=== PATIENT | female | born 1980 | race Caucasian/White ===

== ENCOUNTER 2017-12-13 14:16 | Emergency (ER) | payer MEDICAID, SELFPAY ==
[2017-12-13 14:16] VITALS: BP 151/90; PULSE 78; RESP 16; TEMP 36.9; O2SAT 100; BMI 35.9
--- NOTE | 2017-12-13 14:41 | ED.VISSUMM ---
- ER Visit Summary Date of Service: 12/13/17 Chief Complaint: Rash History of Present Illness: The patient is a 37 F with a rash to her bilateral ankles. The patient is normally sedentary. She has been walking in the heat and developed this rash afterwards. No fever or systemic symptoms. Physical Examination: Vitals unremarkable. Nontoxic. Alert and oriented. Exam unremarkable except for a rash. She has nonblanching erythema to her bilateral ankles that starts about the level of where she was wearing socks. Skin is intact. No warmth, fluctuance, or edema noted. 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 This is self-limiting. Treat with anti-inflammatories. There are no other symptoms to suggest a symptomatic process other concerning features. Nothing to suggest cellulitis. Patient will follow up with primary care. Treatment Plan: Motrin, rest, acclimatized to heat Disposition: Discharged Impression: 1. Rash bilateral ankles This note was generated with [employer] dictation software. It may contain incorrect words, spelling, and punctuation that were not noted in review of the chart prior to signing ED Disposition - Plan for ED Patient: Chief Complaint: Rash Referrals: Care Physician,No Primary [Primary Care Provider] -
--- NOTE | 2017-12-13 14:43 | ED.DEP ---
ED Disposition - Plan for ED Patient: Chief Complaint: Rash Instructions: Self-Care for Skin Rashes Referrals: Benton Garcia MD [NON-STAFF] -
[2017-12-13] MEDS: Ibuprofen 600 MG Tablet PO (14:47)
== END 2017-12-13 14:49 | disposition home or self-care (01) ==
PROVIDERS: Emergency Provider Emergency Medicine
DX: R21 Rash and other nonspecific skin eruption (principal); Z72.0 Tobacco use
CPT/HCPCS: 99284

== ENCOUNTER → 2018-07-24 17:46 | Outpatient (CLI) | payer MEDICAID, SELFPAY ==
[2018-07-24 14:15] VITALS: BMI 35.9
[2018-07-24 17:48] LABS: Bacteria 0 SEEN /hpf (None Seen); Mucous, Urine 0 SEEN /hpf (<or=2+); White Blood Cells 0 SEEN /hpf (0-5)
[2018-07-24 19:45] LABS: Color, Urine Yellow (Yellow); Glucose, Dipstick Normal (Normal); Ketone-Dipstick Negative (Negative); Leukocyte Esterase-Dipstick Negative /ul (Negative); Nitrite-Dipstick Negative (Negative); Occult Blood-Urine 50 /ul (Negative); Protein-Dipstick Negative (Negative); Specific Gravity, Urine 1.015 (1.002-1.030); Urine Bilirubin Dipstick Negative (Negative); Urine Clarity Clear (Clear); Urine Urobilinogen Normal (Normal)
[2018-07-24 20:04] LABS: Red Blood Cells-Urine 0-5 SEEN /hpf (0-5); Squamous Epithelial Cells - UA 0-5 SEEN /hpf (5-10)
== END ==
PROVIDERS: PCP Internal Medicine; Referring Provider Nurse Practitioner Family; Visit Provider Nurse Practitioner Family
DX: R30.0 Dysuria (principal)
CPT/HCPCS: 81001; 87086; 87088

== ENCOUNTER → 2018-08-13 07:44 | Outpatient (CLI) | payer MEDICAID, SELFPAY ==
[2018-08-11 10:50] VITALS: BMI 35.9
[2018-08-13 09:11] LABS: Absolute Lymphocyte Count 2.28 X10^3/ul (0.83-4.51); Absolute Neutrophil Count 5.5 X10^3/uL (2.0-7.7); Basophil# 0.01 X10^3/uL; Basophil% 0.1 % (0-1); Eosinophil# 0.14 X10^3/uL; Eosinophils% 1.7 % (0-5); Hematocrit 36.7 % (37-47); Hemoglobin 11.4 g/dl (12.0-15.0); Lymphocyte # 2.28 X10^3/ul (4.0); Lymphocyte % 27.2 % (19-41); Mean Corp Hgb Conc 31.1 g/gl (32-36); Mean Corpuscular Hgb 26.5 pg (27.0-32.0); Mean Corpuscular Volume 85.3 fL (81-99); Monocyte# 0.48 X10^3/uL; Monocyte% 5.7 % (0-10); Neutrophil # 5.45 X10^3/uL (2.7-7.7); Neutrophil % 65.2 % (47-70); Platelet Count 196 K/mm3 (150-450); RBC Distribution Width CV 16.5 % (11.6-14.6); RBC Distribution Width SD 51.6 fl (35.1-43.9); White Blood Count 8.4 K/mm3 (4.4-11.0)
[2018-08-13 09:13] LABS: POSITIVE COUNT NO; POSITIVE DIFFERENTIAL NO; POSITIVE MORPHOLOGY NO
[2018-08-13 09:52] LABS: ALB/GLOB Ratio 0.7 RATIO (0.9-2.4); AST(SGOT) 41 U/L (15-37); Alanine Aminotransfer ALT/SGPT 63 U/L (13-56); Albumin, Serum 3.2 g/dL (3.2-5.0); Alkaline Phosphatase 70 U/L (45-117); Anion Gap 9 (5-15); BUN 19 mg/dL (7-18); BUN/Creat Ratio 21.6 RATIO (10-20); Calcium,Total 6.5 mg/dL (8.5-10.1); Chloride 106 mmol/L (98-107); Creatinine, Serum 0.88 mg/dL (0.55-1.02); EST Glomerular Filtration Rate 77 mL/min (>60); Est Glom Filt Rate - Afr Amer 93 mL/min (>60); Globulin 4.7 g/dL (2.2-4.2); Glucose 95 mg/dL (74-106); Potassium 3.6 mmol/L (3.5-5.1); Protein, Total 7.9 g/dL (6.4-8.2); Sodium Level 140 mmol/L (136-145); Thyroid Stim Hormone (TSH) 3.84 uIU/mL (0.358-3.74)
[2018-08-13 09:57] LABS: T3 Total - Triiodothyronine 0.87 ng/mL (0.6-1.81)
== END ==
PROVIDERS: Family Provider Internal Medicine; PCP Internal Medicine; Referring Provider Nurse Practitioner Family; Visit Provider Nurse Practitioner Family
DX: B19.20 Unspecified viral hepatitis C without hepatic coma (principal); E03.9 Hypothyroidism, unspecified; F19.10 Other psychoactive substance abuse, uncomplicated
CPT/HCPCS: 36415; 80053; 84439; 84443; 84480; 85025

== ENCOUNTER → 2018-08-26 08:16 | Outpatient (CLI) | payer MEDICAID, SELFPAY ==
[2018-08-11 10:50] VITALS: BMI 35.9
[2018-08-26 10:10] LABS: Anion Gap 7 (5-15); BUN 16 mg/dL (7-18); BUN/Creat Ratio 19.3 RATIO (10-20); Calcium,Total 7.4 mg/dL (8.5-10.1); Chloride 104 mmol/L (98-107); Creatinine, Serum 0.83 mg/dL (0.55-1.02); EST Glomerular Filtration Rate 83 mL/min (>60); Est Glom Filt Rate - Afr Amer 100 mL/min (>60); Glucose 75 mg/dL (74-106); Potassium 3.8 mmol/L (3.5-5.1); Sodium Level 139 mmol/L (136-145)
== END ==
PROVIDERS: Family Provider Internal Medicine; PCP Internal Medicine; Referring Provider Nurse Practitioner Family; Visit Provider Nurse Practitioner Family
DX: E83.51 Hypocalcemia (principal)
CPT/HCPCS: 36415; 80048

== ENCOUNTER → 2018-09-24 08:01 | Outpatient (CLI) | payer MEDICAID, SELFPAY ==
[2018-09-16 13:42] VITALS: BMI 35.9
[2018-09-24 13:26] LABS: Anion Gap 9 (5-15); BUN 13 mg/dL (7-18); BUN/Creat Ratio 16.1 RATIO (10-20); Calcium,Total 5.6 mg/dL (8.5-10.1); Chloride 102 mmol/L (98-107); Creatinine, Serum 0.81 mg/dL (0.55-1.02); EST Glomerular Filtration Rate 85 mL/min (>60); Est Glom Filt Rate - Afr Amer 103 mL/min (>60); Glucose 102 mg/dL (74-106); Potassium 3.8 mmol/L (3.5-5.1); Sodium Level 139 mmol/L (136-145); T4 Free Direct 1.83 ng/dL (0.76-1.46); Thyroid Stim Hormone (TSH) 0.04 uIU/mL (0.358-3.74)
== END ==
PROVIDERS: Family Provider Internal Medicine; PCP Internal Medicine; Visit Provider Nurse Practitioner Family
DX: E03.9 Hypothyroidism, unspecified (principal); E83.51 Hypocalcemia
CPT/HCPCS: 36415; 80048; 84439; 84443

== ENCOUNTER 2018-09-24 15:34 | Emergency (ER) | payer MEDICAID, SELFPAY ==
[2018-09-16 13:42] VITALS: BMI 35.9
[2018-09-24 15:34] VITALS: BP 114/72; PULSE 102; RESP 16; TEMP 36.8; O2SAT 97; BMI 42.1
--- NOTE | 2018-09-24 16:03 | ED.VISSUMM ---
- ER Visit Summary Date of Service: 09/24/18 Chief Complaint: Sent in for low calcium History of Present Illness: The patient is a 37 F history of thyroid cancer prior thyroidectomy and parathyroidectomy with a history of chronic hypocalcemia. She has a history also of hepatitis C, anemia and prior drug abuse. Patient had labs done at her primary care physician's office which showed low calcium of 5.6 and she was sent in the ER. Says she is felt fatigued recently but she has been battling a URI. She denies nausea, vomiting or diarrhea. Says she has some intermittent muscle cramping or fasciculations. She takes 1200 mg of calcium daily along with vitamin D. Physical Examination: Well-appearing young female. Vital signs are stable afebrile. No distress. HEENT exam unremarkable. Neck nontender. Lungs clear to auscultation bilaterally. Heart regular rate and rhythm no murmur. Abdomen soft nontender. Normal bowel sounds no peritoneal signs. Extremities moves all 4. Neurovascular intact. Normal motor strength. Neurologically awake and alert with no focal motor deficits. Test Results: BMP is unremarkable except for her calcium of 5.2. Normal creatinine and gap. Normal potassium. Emergency Department Course and Treatment: Treated with IV calcium chloride. Repeat exam patient is doing well at 1820. Feels fine and comfortable being discharged home. Treatment Plan: Continue her current medications. Return to ER feeling worse she knows the symptoms to return for. Follow-up with your doctor on Friday to have her calcium level rechecked. Follow-up with a market relationship manager long-term. Disposition: discharge Impression: Acute on chronic hypocalcemia History of thyroidectomy and parathyroidectomy due to thyroid cancer This note was generated with [employer] dictation software. It may contain incorrect words, spelling, and punctuation that were not noted in review of the chart prior to signing ED Disposition - Plan for ED Patient: Referrals: Maykel Larose MD [Primary Care Provider] -
--- NOTE | 2018-09-24 16:09 | ED.DCSUM_ITS ---
- ER Visit Summary Date of Service: 09/24/18 Chief Complaint: Sent in for low calcium History of Present Illness: The patient is a 37 F history of thyroid cancer prior thyroidectomy and parathyroidectomy with a history of chronic hypocalcemia. She has a history also of hepatitis C, anemia and prior drug ab use. Patient had labs done at her primary care physician's office which showed low calcium of 5.6 and she was sent in the ER. Says she is felt fatigued recently but she has been battling a URI. She denies nausea, vomiting or diarrhea. Says she has some intermittent muscle cramping or fasciculations. She takes 1200 mg of calcium daily along with vitamin D. Physical Examination: Well-appearing young female. Vital signs are stable afebrile. No distress. HEENT exam unremarkable. Neck nontender. Lungs clear to auscultation bilaterally. Heart regular rate and rhythm no murmur. Abdomen soft nontender. Normal bowel sounds no peritoneal signs. Extremities moves all 4. Neurovascular intact. Normal motor strength. Neurologically awake and alert with no focal motor deficits. Test Results: BMP is unremarkable except for her calcium of 5.2. Normal creatinine and gap. Normal potassium. Emergency Department Course and Treatment: Treated with IV calcium chloride. Repeat exam patient is doing well at 1820. Feels fine and comfortable being discharged home. Treatment Plan: Continue her current medications. Return to ER feeling worse she knows the symptoms to return for. Follow-up with your doctor on Friday to have her calcium level rechecked. Follow-up with a facility manager histology long-term. Disposition: discharge Impression: Acute on chronic hypocalcemia History of thyroidectomy and parathyroidectomy due to thyroid cancer This note was generated with [employer] dictation software. It may contain incorrect words, spelling, and punctuation that were not noted in review of the chart prior to signing ED Disposition - Plan for ED Patient: Referrals: Maykel Larose MD [Primary Care Provider] -
[2018-09-24 17:10] LABS: Anion Gap 8 (5-15); BUN 13 mg/dL (7-18); BUN/Creat Ratio 17.2 RATIO (10-20); Calcium,Total 5.2 mg/dL (8.5-10.1); Chloride 104 mmol/L (98-107); Creatinine, Serum 0.76 mg/dL (0.55-1.02); EST Glomerular Filtration Rate 92 mL/min (>60); Est Glom Filt Rate - Afr Amer 111 mL/min (>60); Estimated Creatinine Clearance 114.38 ml/min; Glucose 100 mg/dL (74-106); Potassium 3.5 mmol/L (3.5-5.1); Sodium Level 138 mmol/L (136-145)
[2018-09-24 17:11] VITALS: BP 114/71; PULSE 85; RESP 23; O2SAT 99
--- NOTE | 2018-09-24 17:12 | ED.RN ---
DR. YOST AWARE OF CRITICAL CALCIUM
[2018-09-24 18:21] VITALS: BP 93/67; PULSE 82; RESP 18
--- NOTE | 2018-09-24 18:22 | DCINST.ED_ITS ---
ED Disposition - Plan for ED Patient: Disposition: Home or Assisted Living Instructions: ED Hypocalcemia Referrals: Maykel Larose MD [Primary Care Provider] - 3-5 Days Additional Instructions: Follow-up with your doctors office on Friday and need to have your calcium level rechecked. Continue your current medications specifically your calcium. Return to ER if you are feeling worse. Long-term you to follow-up with diesel engine specialist for your hypoparathyroidism
== END 2018-09-24 18:25 | disposition home or self-care (01) ==
PROVIDERS: Emergency Provider Emergency Medicine; Family Provider Internal Medicine; PCP Internal Medicine
DX: E83.51 Hypocalcemia (principal); D64.9 Anemia, unspecified; Z72.0 Tobacco use; Z79.899 Other long term (current) drug therapy; Z86.19 Personal history of other infectious and parasitic diseases; Z85.850 Personal history of malignant neoplasm of thyroid; E03.9 Hypothyroidism, unspecified
CPT/HCPCS: 36415; 80048; 84439; 84443; 96365; 96366; 99282; J7030; A4216

== ENCOUNTER → 2018-10-07 15:34 | Outpatient (CLI) | payer MEDICAID, SELFPAY ==
[2018-09-25 14:42] VITALS: BMI 43.2
--- NOTE | 2018-10-07 15:36 | RAD_ITS ---
STUDY: X-RAY - RIGHT KNEE REASON FOR EXAM: Pain. TECHNIQUE: 5 view(s) of the knee. COMPARISON: None. FINDINGS: Normal visualized distal femur. Normal visualized proximal tibia and fibula. Normal proximal tibiofibular articulation. Normal medial femorotibial compartment. There is a small marginal osteophyte and mild joint space narrowing of the lateral femorotibial compartment. Normal patellofemoral articulation. The soft tissue structures are unremarkable. 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 Electronically Signed: Robbie Boswell MD at 15:38 EDT Tel , Service support ,
== END ==
PROVIDERS: Family Provider Internal Medicine; PCP Internal Medicine; Referring Provider Orthopaedic Surgery; Visit Provider Orthopaedic Surgery
DX: M25.561 Pain in right knee (principal)
CPT/HCPCS: 73564

== ENCOUNTER → 2018-10-12 13:06 | Outpatient (CLI) | payer MEDICAID, SELFPAY ==
[2018-09-25 14:42] VITALS: BMI 43.2
[2018-10-12 14:25] LABS: PTHIN 3.9 pg/mL (18.4-80.1)
[2018-10-12 14:30] LABS: Anion Gap 5 (5-15); BUN 18 mg/dL (7-18); BUN/Creat Ratio 22.1 RATIO (10-20); Calcium,Total 5.6 mg/dL (8.5-10.1); Chloride 103 mmol/L (98-107); Creatinine, Serum 0.81 mg/dL (0.55-1.02); EST Glomerular Filtration Rate 84 mL/min (>60); Est Glom Filt Rate - Afr Amer 102 mL/min (>60); Glucose 96 mg/dL (74-106); Sodium Level 136 mmol/L (136-145); Thyroid Stim Hormone (TSH) 0.01 uIU/mL (0.358-3.74)
== END ==
PROVIDERS: Family Provider Internal Medicine; PCP Internal Medicine; Referring Provider Internal Medicine; Visit Provider Internal Medicine
DX: E83.51 Hypocalcemia (principal); E03.9 Hypothyroidism, unspecified
CPT/HCPCS: 36415; 80048; 83970; 84439; 84443

== ENCOUNTER 2018-10-13 10:06 | Observation (INO) | payer MEDICAID, SELFPAY ==
[2018-09-25 14:42] VITALS: BMI 43.2
[2018-10-13 10:07] VITALS: BP 133/85; PULSE 88; RESP 18; TEMP 36.7; O2SAT 97; BMI 43.2
--- NOTE | 2018-10-13 10:20 | EKG12_ITS ---
Test Reason : [facility] LABS Blood Pressure : / mmHG Vent. Rate : 080 BPM Atrial Rate : 080 BPM P-R Int : 132 ms QRS Dur : 088 ms QT Int : 410 ms P-R-T Axes : 028 019 034 degrees QTc Int : 472 ms Normal sinus rhythm Normal ECG Confirmed by ROLDAN GOMEZ, FEROZ ([id number]), manager editorial CAPRICE AMBROSE ([id number]) on 10/15/2018 9:13:13 AM Referred By: Servando Culver Confirmed By:FEROZ MONTILLA MD
--- NOTE | 2018-10-13 10:23 | NURSING ---
NO OLD EKGS
[2018-10-13 11:01] LABS: Absolute Lymphocyte Count 1.73 X10^3/ul (0.83-4.51); Absolute Neutrophil Count 5.2 X10^3/uL (2.0-7.7); Basophil# 0.01 X10^3/uL; Basophil% 0.1 % (0-1); Eosinophil# 0.15 X10^3/uL; Hematocrit 37.4 % (37-47); Lymphocyte # 1.73 X10^3/ul (4.0); Lymphocyte % 22.8 % (19-41); Mean Corp Hgb Conc 32.1 g/gl (32-36); Mean Corpuscular Volume 81.1 fL (81-99); Mean Platelet Vol. 10.1 fl (6.2-12.0); Monocyte# 0.48 X10^3/uL; Monocyte% 6.3 % (0-10); Neutrophil # 5.21 X10^3/uL (2.7-7.7); Neutrophil % 68.7 % (47-70); Platelet Count 226 K/mm3 (150-450); RBC Distribution Width SD 43.9 fl (35.1-43.9); Red Blood Count 4.61 M/mm3 (4.2-5.4); White Blood Count 7.6 K/mm3 (4.4-11.0)
[2018-10-13 11:04] LABS: POSITIVE COUNT NO; POSITIVE DIFFERENTIAL NO; POSITIVE MORPHOLOGY NO
[2018-10-13 11:13] LABS: Anion Gap 5 (5-15); BUN 13 mg/dL (7-18); BUN/Creat Ratio 16.4 RATIO (10-20); Calcium,Total 5.6 mg/dL (8.5-10.1); Chloride 105 mmol/L (98-107); EST Glomerular Filtration Rate 87 mL/min (>60); Est Glom Filt Rate - Afr Amer 105 mL/min (>60); Estimated Creatinine Clearance 108.66 ml/min; Glucose 98 mg/dL (74-106); Potassium 3.9 mmol/L (3.5-5.1); Sodium Level 137 mmol/L (136-145)
--- NOTE | 2018-10-13 11:14 | ED.RN ---
CA OF 5.[address] MCGILL
[2018-10-13] MEDS: Calcium Chloride 1 GM/10 ML Syringe IV (11:19)
--- NOTE | 2018-10-13 11:19 | ED.VISSUMM ---
- ER Visit Summary Date of Service: 10/13/18 Chief Complaint: [Hypocalcemia] History of Present Illness: The patient is a 37 F [presents the emergency department stating that for last 3-4 months she has been having problems with no calcium. Patient takes calcium carbonate 600 mg twice a day. She had blood work done yesterday that showed a low calcium and was advised to come to the emergency department today. Patient complains of eyelid twitching and slow thinking and also at times feels like her hands lock up. Patient has history of thyroidectomy and parathyroid resections and states that she only has 1 parathyroid working. Patient had been seeing an dive superintendent after her surgery but then her internal medicine doctor took over treatment. Patient was referred recently to an dive superintendent but has not seen him yet.] Physical Examination: [HEENT-PERRLA, EOMI. Cranial nerves II through XII grossly intact. TMs clear. Mucous membranes moist. No adenopathy. Cardiovascular-regular rate and rhythm without murmur or ectopy Lungs-clear to auscultation, chest wall stable without crepitus or subcu emphysema Abdomen-normoactive bowel sounds, soft, nontender, no rebound or rigidity, no peritoneal signs. Extremities-intact ?4, normal range of motion, normal pulses, atraumatic] Test Results: [CBC with differential obtained was unremarkable. Chemistries unremarkable. Calcium was 5.6. EKG obtained showed sinus rhythm with a ventricular rate of 80 bpm with no acute I segment changes.] Emergency Department Course and Treatment: [Patient was given calcium chloride 1 amp IV.] Treatment Plan: [Discussed with hospitalist will admit patient] Disposition: [Admit] Impression: [Symptomatic hypocalcemia] This note was generated with [employer] dictation software. It may contain incorrect words, spelling, and punctuation that were not noted in review of the chart prior to signing ED Disposition - Plan for ED Patient: Referrals: Maykel Larose MD [Primary Care Provider] -
--- NOTE | 2018-10-13 11:23 | ED.DCSUM_ITS ---
- ER Visit Summary Date of Service: 10/13/18 Chief Complaint: [Hypocalcemia] History of Present Illness: The patient is a 37 F [presents the emergency department stating that for last 3-4 months she has been having problems with no calcium. Patient takes calcium carbonate 600 mg twice a day. She had blood work done yesterday that showed a low calcium and was advised to come to the emergency department today. Patient complains of eyelid twitching and slow thinking and also at times feels like her hands lock up. Patient has history of thyroidectomy and parathyroid resections and states that she only has 1 parathyroid working. Patient had been seeing an doors prefitter after her surgery but then her internal medicine doctor took over treatment. Patient was referred recently to an doors prefitter but has not seen him yet.] Physical Examination: [HEENT-PERRLA, EOMI. Cranial nerves II through XII grossly intact. TMs clear. Mucous membranes moist. No adenopathy. Cardiovascular-regular rate and rhythm without murmur or ectopy Lungs-clear to auscultation, chest wall stable without crepitus or subcu emphysema Abdomen-normoactive bowel sounds, soft, nontender, no rebound or rigidity, no peritoneal signs. Extremities-intact ?4, normal range of motion, normal pulses, atraumatic] Test Results: [CBC with differential obtained was unremarkable. Chemistries unremarkable. Calcium was 5.6. EKG obtained showed sinus rhythm with a ventricular rate of 80 bpm with no acute I segment changes.] Emergency Department Course and Treatment: [Patient was given calcium chloride 1 amp IV.] Treatment Plan: [Discussed with hospitalist will admit patient] Disposition: [Admit] Impression: [Symptomatic hypocalcemia] This note was generated with [employer] dictation software. It may contain incorrect words, spelling, and punctuation that were not noted in review of the chart prior to signing ED Disposition - Plan for ED Patient: Referrals: Maykel Larose MD [Primary Care Provider] -
--- NOTE | 2018-10-13 11:33 | NURSING ---
DR GARCIA FOR DR MCGILL
--- NOTE | 2018-10-13 11:35 | NURSING ---
MED SURG OBS TERELETKSY HYPOCALCEMIA
--- NOTE | 2018-10-13 11:47 | CASEMGMT ---
RN CM Assessment Introduced role of RN CM to patient.? Patient is alert, oriented and able?to participate in RN CM Assessment. ?Care providers, pharmacy, and demographics verified. Presentation: Has been having issues with low Calcioum the past 3-4 months, had blood work done yesterday that showed low Calcium and told to come to the ER Admit Dx: Hypoglycemia Re-Admit: No Barriers/Issues: None PCP: Maykel Larose Specialists: Radha- Dr Johnie Reno [facility]: [facility] Insurance: [facility] Rx Benefit:?Yes ?LNOK: [facility] LW/HPOA: No, Refused Offered info. Living Arrangements:? Lives at the [facility] ADL?s: Independent with ambulation and ADL's Transportation: Transit or [facility], D/C- [facility] DME: None HHC: None SNF: None Goal: Back to the [facility] DC PLAN: Home with no anticipated needs identified at this time. Mulugeta Eduardo RNCM
[2018-10-13 12:23] VITALS: BP 99/76; PULSE 65; RESP 17; O2SAT 99
[2018-10-13 12:52] VITALS: BMI 43.3
[2018-10-13 13:05] VITALS: BP 104/67; PULSE 65; RESP 16; TEMP 36.6; O2SAT 100; BMI 43.4
[2018-10-13] MEDS: Calcium Carbonate 500 MG Tablet 1000 MG PO ×3 (13:47→22:29)
[2018-10-13] MEDS: Calcitriol 0.25 MCG Capsule 1 MCG PO ×2 (13:48→22:28)
--- NOTE | 2018-10-13 14:05 | CASEMGMT ---
Addendum entered by Radha Echevarria 10/13/18 17:04: SW reviewed documentation completed by student mental health social worker and agree with note on this day. Original Note: Social Work MS3 Spoke with pt to confirm treatment for recent diagnosis of depression. Pt confirmed to be in residential treatment and works with counselors daily and has prescription of Wellbutrin for medication treatment. No other services requested or indicated at this time. -Barbara Goins, HOME LIGHTING ADVISER Student Stamping Bench Die Maker.
--- NOTE | 2018-10-13 15:20 | PCM.HP.STD ---
Problem List (1) Chronic sinusitis Status: Chronic (2) Hypoparathyroidism Status: Chronic (3) Morbid obesity with BMI of 40.0-44.9, adult Status: Chronic (4) Calcium deficiency Status: Chronic (5) Hypothyroidism Status: Chronic (6) Chronic pain of right knee Status: Chronic (7) Vitamin deficiency Status: Chronic (8) Neuropathy Status: Chronic (9) Low calcium levels Status: Chronic (10) Hepatitis C Status: Chronic (11) Drug abuse Status: Resolved (12) Anemia Status: Chronic History of Present Illness Date of Admission: 10/13/18 Chief Complaint: Low calcium. The patient is a 37 year old F who presents emergency room due to low calcium. Patient reports she had lab drawn yesterday by her primary care provider and was referred to the emergency room due to low calcium. She reports she has had intermittent low calcium levels for the past 7 years due to hypoparathyroidism status post thyroidectomy. She currently reports eye twitching and bilateral hand cramping. Denies other complaints. Denies palpitations, chest pain. She denies history of arrhythmias. She reports she has been referred to endocrinology as an outpatient but has not yet followed up. She has a past medical history of hypothyroidism/hypoparathyroidism status post thyroidectomy, hepatitis C, morbid obesity, history of drug use in remission for the past 2 years. Past Medical History Past Medical History (Chronic Problems): Chronic Problems (Last Reviewed 09/25/18 @ 14:42 by Mery Tinsley) Chronic sinusitis (Chronic) Hypoparathyroidism (Chronic) Morbid obesity with BMI of 40.0-44.9, adult (Chronic) Calcium deficiency (Chronic) Hypothyroidism (Chronic) Chronic pain of right knee (Chronic) Vitamin deficiency (Chronic) Neuropathy (Chronic) Low calcium levels (Chronic) Hepatitis C (Chronic) Anemia (Chronic) Medical History: Medical History (Last Reviewed 09/25/18 @ 14:42 by Mery Tinsley) Vitamin deficiency (Chronic) E56.9 Neuropathy (Chronic) G62.9 Low calcium levels (Chronic) E83.51 Hepatitis C (Chronic) B19.20 Drug abuse (Acute) F19.10 Anemia (Chronic) D64.9 Thyroid cancer C73 Allergies amoxicillin Allergy (Intermediate, Verified 10/13/18 12:56) Hives naproxen Allergy (Verified 10/13/18 10:08) Swelling Home Medications: Ambulatory Orders Medication Instructions Recorded albuterol sulfate HFA 90 1 - 2 puff INHALATION Q6H PRN #8 g 08/11/18 mcg/actuation aerosol inhaler Bupropion HCl [Bupropion Xl] 150 mg PO DAILY 09/24/18 Ferrous Sulfate 325 mg PO DAILY 09/24/18 Fluticasone 0.05% [Flonase Nasal 1 spray NASAL DAILY 09/24/18 [place]] Gabapentin [Neurontin] 300 mg PO QHS 09/24/18 Omeprazole 40 mg PO DAILY 09/24/18 Potassium Chloride [K-Tab ER] 20 meq PO DAILY 09/24/18 calcitriol 0.5 mcg capsule 0.5 mcg PO DAILY #30 cap 10/12/18 calcium carbonate 600 mg calcium 600 mg PO BID #60 tab 10/12/18 (1,500 mg) tablet Levothyroxine Sodium 200 mcg PO DAILY 10/13/18 Surgical History: Surgical History (Last Reviewed 10/13/18 @ 15:23 by GUEVARA Chin) HISTORY PARTIAL PARATHYROIDECTOMY 2010 History of Z98.891 2004, 2010 History of thyroidectomy Z98.890 History of tubal ligation Z98.51 2011 Surgical History: - - x2, tubal ligation, thyroidectomy. 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 Review of Systems Constitutional: Denies: Chills, Fever, Weight Change Eyes: Reports: - - Eye twitching. Denies: Vision Change HEENT: Denies: Head Aches, Sinus Congestion, Sinus Drainage Cardiovascular: Denies: Chest Pain, Palpitations Respiratory: Denies: Cough, Shortness of breath at rest, Sputum production Gastrointestinal: Denies: Abdominal Pain, Nausea, Vomiting Genitourinary: Denies: Dysuria Musculoskeletal: Reports: - - Bilateral hand cramping. Denies: Joint Pain, Joint Tenderness Skin: Denies: Rash, Wounds Neurological: Denies: Focal weakness, Numbness, Tingling Psychiatric: Denies: Anxiety, Depression, Homicidal Ideations, Suicidal Ideations Hematologic/ Lymphatic: Denies: Easy Bruising, Easy Bleeding VTE Information - Inpt Only VTE Present on Admission: No VTE Mechan Device Prophylaxis: None VTE Pharm Prophylaxis ordered?: Yes - Physical Exam General: Alert, Oriented x3, Cooperative HEENT: Atraumatic, PERRLA, EOMI, Normocephalic Neck: Supple, No JVD, Negative Carotid Bruits Lungs: Clear to auscultation, Normal air movement Cardiovascular: Regular rate, Regular Rhythm, Normal S1, Normal S2, No murmurs Abdomen: Bowel Sounds Present, Soft, Non Tender, Non-Distended, Obese Extremities: No clubbing, No cyanosis, No edema, Capillary Refill Less than 3 Seconds Skin: No rashes, No breakdown Musculoskeletal: No Tenderness to Palpation of Joints or Extremities Neurological: Cranial nerves II-XII grossly intact, Neuro grossly intact Psych/Mental Status: Normal Affect, Appropriate Vital Signs Temp Pulse Resp BP Pulse Ox 97.9 F 65 16 104/67 100 10/13/18 13:05 10/13/18 13:05 10/13/18 13:05 10/13/18 13:05 10/13/18 13:05 Oxygen Delivery Method Room Air Weight: 310 lb 14.687 oz Body Mass Index (BMI) 43.3 Laboratory Tests Past 24 Hrs 10/13/18 10/13/18 10/13/18 10:44 10:44 10:44 WBC 7.6 RBC 4.61 Hgb 12.0 Hct 37.4 MCV 81.1 MCH 26.0 L MCHC 32.1 RDW 15.0 H RDW Differential 43.9 Plt Count 226 MPV 10.1 Immature Gran % (Auto) 0.100 Neut % (Auto) 68.7 Lymph % (Auto) 22.8 [place] % (Auto) 6.3 Eos % (Auto) 2.0 Baso % (Auto) 0.1 Absolute Neuts (auto) 5.2 Absolute Lymphs (auto) 1.73 Total Counted Not Reportable Sodium 137 Potassium 3.9 Chloride 105 Carbon Dioxide 27.0 Anion Gap 5 BUN 13 Creatinine 0.80 Estim Creat Clear Calc 108.66 Est GFR (MDRD) Af Amer 105 Est GFR (MDRD) Non-Af 87 BUN/Creatinine Ratio 16.4 Glucose 98 Calcium 5.6 L* Ionized Calcium Pending Assessment/Plan All Active Problems (Last Reviewed 09/25/18 @ 14:42 by Mery Tinsley) Drug abuse (Resolved) 1. Acute on chronic severe hypocalcemia in the context of hypoparathyroidism/Hypothyroidism status post thyroidectomy-calcium gluconate X1. Calcium carbonate 1000 mg 4 times daily. Trend calcium. Monitor telemetry. Follow-up with endocrinology as outpatient. 2. Hepatitis C- outpatient follow up. 3. 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 Lives in sober living house. 4. Morbid obesity-encouraged diet lifestyle modifications. 5. Depression/anxiety-continue home bupropion regimen. 6. GERD-continue PPI. DVT prophylaxis-not indicated, low risk. This patient was seen by GUEVARA Chin under the supervision of Dr. Culver.
[2018-10-13 15:25] VITALS: PULSE 64
[2018-10-13 19:59] VITALS: PULSE 71
[2018-10-13 20:28] VITALS: BP 100/77; PULSE 79; RESP 18; TEMP 36.6; O2SAT 97
[2018-10-13] MEDS: Gabapentin 300 MG Capsule PO (22:28)
[2018-10-14] VITALS (7 sets, daily range): BP systolic 99–115; BP diastolic 52–67; PULSE 62–86; RESP 16–18; TEMP 36.4–37; O2SAT 96–97
[2018-10-14] MEDS: Levothyroxine 100 MCG Tablet 200 MCG PO (06:28)
[2018-10-14 06:29] LABS: Calcium,Total 7.2 mg/dL (8.5-10.1)
[2018-10-14] MEDS: Ferrous Sulfate 325 MG Tablet PO (08:28)
[2018-10-14] MEDS: Calcium Carbonate 500 MG Tablet 1000 MG PO (08:28)
[2018-10-14] MEDS: 0.9% NaCl Peripheral Flush Adult/Peds IV (09:03)
--- NOTE | 2018-10-14 10:52 | PCM.DC ---
You will use the following diet at home:: No restrictions Discharge Activity: Return to Normal Activity Call your doctor if you observe: Numbness or Tingling, Increased palpitations (irregular heartbeat) Additional Instructions: You will need to have calcium level repeated within 1 week. Allergies/Adverse Reactions: Allergies amoxicillin Allergy (Intermediate, Verified 10/13/18 12:56) Hives naproxen Allergy (Verified 10/13/18 10:08) Swelling Medications to take at Discharge albuterol sulfate HFA 90 mcg/actuation aerosol inhaler 1 - 2 puff INHALATION Q6H PRN #8 g 08/11/18 Bupropion HCl [Bupropion Xl] 150 mg PO DAILY 09/24/18 Ferrous Sulfate 325 mg PO DAILY 09/24/18 Fluticasone 0.05% [Flonase Nasal [place]] 1 spray NASAL DAILY 09/24/18 Gabapentin [Neurontin] 300 mg PO QHS 09/24/18 Omeprazole 40 mg PO DAILY 09/24/18 Potassium Chloride [K-Tab ER] 20 meq PO DAILY 09/24/18 Levothyroxine Sodium 200 mcg PO DAILY 10/13/18 Calcitriol [Rocaltrol] 1 mcg PO BID #120 capsule 10/14/18 Calcium Carbonate [Tums] 1,000 mg PO 4X/DAYCM #120 tablet 10/14/18 The following prescriptions were given: Calcitriol [Rocaltrol] 1 mcg PO BID #120 capsule Calcium Carbonate [Tums] 1,000 mg PO 4X/DAYCM #120 tablet Primary Care Physician: Maykel Larose MD [Primary Care Provider] - Please follow up with your Primary Care Physician in: 3-5 Days Test Results: Test results from this visit will be discussed in further detail at your follow-up appointment, if applicable. Please Follow Up With: Krys Drummond MD - Endocrinology When: Within 1 Week, call for appt Proposed Discharge Date: 10/14/18
--- NOTE | 2018-10-14 10:58 | DCINST_ITS ---
You will use the following diet at home:: No restrictions Discharge Activity: Return to Normal Activity Call your doctor if you observe: Numbness or Tingling, Increased palpitations (irregular heartbeat) Additional Instructions: You will need to have calcium level repeated within 1 week. Allergies/Adverse Reactions: Allergies amoxicillin Allergy (Intermediate, Verified 10/13/18 12:56) Hives naproxen Allergy (Verified 10/13/18 10:08) Swelling Medications to take at Discharge albuterol sulfate HFA 90 mcg/actuation aerosol inhaler 1 - 2 puff INHALATION Q6H PRN #8 g 08/11/18 Bupropion HCl [Bupropion Xl] 150 mg PO DAILY 09/24/18 Ferrous Sulfate 325 mg PO DAILY 09/24/18 Fluticasone 0.05% [Flonase Nasal [place]] 1 spray NASAL DAILY 09/24/18 Gabapentin [Neurontin] 300 mg PO QHS 09/24/18 Omeprazole 40 mg PO DAILY 09/24/18 Potassium Chloride [K-Tab ER] 20 meq PO DAILY 09/24/18 Levothyroxine Sodium 200 mcg PO DAILY 10/13/18 Calcitriol [Rocaltrol] 1 mcg PO BID #120 capsule 10/14/18 Calcium Carbonate [Tums] 1,000 mg PO 4X/DAYCM #120 tablet 10/14/18 The following prescriptions were given: Calcitriol [Rocaltrol] 1 mcg PO BID #120 capsule Calcium Carbonate [Tums] 1,000 mg PO 4X/DAYCM #120 tablet Primary Care Physician: Maykel Larose MD [Primary Care Provider] - Please follow up with your Primary Care Physician in: 3-5 Days Test Results: Test results from this visit will be discussed in further detail at your follow- up appointment, if applicable. Please Follow Up With: Krys Drummond MD - Endocrinology When: Within 1 Week, call for appt Proposed Discharge Date: 10/14/18
--- NOTE | 2018-10-14 10:59 | PCM.DC.SUM ---
Discharge Date and Diagnosis Date of Admission: 10/13/18 Date of Discharge: 10/14/18 - Primary Discharge Diagnosis 1. Acute on chronic severe hypocalcemia in the context of hypoparathyroidism/Hypothyroidism status post thyroidectomy 2. Hepatitis C 3. 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 Morbid obesity 5. Depression/anxiety 6. GERD - Secondary Discharge Diagnosis Chronic Problems (Last Reviewed 09/25/18 @ 14:42 by Mery Tinsley) Chronic sinusitis (Chronic) Hypoparathyroidism (Chronic) Morbid obesity with BMI of 40.0-44.9, adult (Chronic) Calcium deficiency (Chronic) Hypothyroidism (Chronic) Chronic pain of right knee (Chronic) Vitamin deficiency (Chronic) Neuropathy (Chronic) Low calcium levels (Chronic) Hepatitis C (Chronic) Anemia (Chronic) Hospital Course and Treatment Operations: None Procedures: None Summary of Care Provided: The patient is a 37 year old F admitted 10/13/2018 due to low calcium. 1. Acute on chronic severe hypocalcemia in the context of hypoparathyroidism/Hypothyroidism status post thyroidectomy-calcium gluconate X2 during admission. Increase home calcium carbonate to 1000 mg 4 times daily. Home calcitriol regimen increased to 1 mcg twice daily. Calcium level improved to 7.2 from 5.6 on admission. She will need repeat calcium level drawn within 1 week. Follow-up with primary care physician and endocrinology in 1 week. 2. Hepatitis C- outpatient follow up. 3. 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 Lives in sober living house. 4. Morbid obesity-encouraged diet and lifestyle modifications. 5. Depression/anxiety-continue home bupropion regimen. 6. GERD-continue PPI. General: Alert, Oriented x3, Cooperative HEENT: Atraumatic, PERRLA, EOMI, Normocephalic Neck: Supple, No JVD, Negative Carotid Bruits Lungs: Clear to auscultation, Normal air movement Cardiovascular: Regular rate, Regular Rhythm, Normal S1, Normal S2, No murmurs Abdomen: Bowel Sounds Present, Soft, Non Tender, Non-Distended, Obese Extremities: No clubbing, No cyanosis, No edema, Capillary Refill Less than 3 Seconds Skin: No rashes, No breakdown Musculoskeletal: No Tenderness to Palpation of Joints or Extremities Neurological: Cranial nerves II-XII grossly intact, Neuro grossly intact Psych/Mental Status: Normal Affect, Appropriate Patient seen and examined prior to discharge. Physical assessment as noted above. Patient is stable for discharge with follow up recommendations as noted above. This patient was seen by GUEVARA Chin under the supervision of Dr. Culver. - Physical Exam Vital Signs Temp Pulse Resp BP Pulse Ox 98.6 F 67 16 99/52 L 97 10/14/18 08:26 10/14/18 10:00 10/14/18 08:26 10/14/18 08:26 10/14/18 08:26 Oxygen Delivery Method Room Air Weight: 310 lb 14.687 oz Body Mass Index (BMI) 43.3 Intake and Output for Last 24 Hours 10/12/18 10/13/18 10/14/18 23:59 23:59 23:59 Intake Total 500 / 500 Balance 500 / 500 Laboratory Tests Past 24 Hrs 10/13/18 10/13/18 10/14/18 10:44 10:44 05:15 WBC 7.6 RBC 4.61 Hgb 12.0 Hct 37.4 MCV 81.1 MCH 26.0 L MCHC 32.1 RDW 15.0 H RDW Differential 43.9 Plt Count 226 MPV 10.1 Immature Gran % (Auto) 0.100 Neut % (Auto) 68.7 Lymph % (Auto) 22.8 Real % (Auto) 6.3 Eos % (Auto) 2.0 Baso % (Auto) 0.1 Absolute Neuts (auto) 5.2 Absolute Lymphs (auto) 1.73 Total Counted Not Reportable Sodium 137 Potassium 3.9 Chloride 105 Carbon Dioxide 27.0 Anion Gap 5 BUN 13 Creatinine 0.80 Estim Creat Clear Calc 108.66 Est GFR (MDRD) Af Amer 105 Est GFR (MDRD) Non-Af 87 BUN/Creatinine Ratio 16.4 Glucose 98 Calcium 5.6 L* 7.2 L Discharge Diet: No Restrictions Discharge Activity: Return to Normal Activity Call your doctor if you observe: Numbness or Tingling, Increased palpitations (irregular heartbeat) Home Medications: Medications to take at Discharge albuterol sulfate HFA 90 mcg/actuation aerosol inhaler 1 - 2 puff INHALATION Q6H PRN #8 g 08/11/18 Bupropion HCl [Bupropion Xl] 150 mg PO DAILY 09/24/18 Ferrous Sulfate 325 mg PO DAILY 09/24/18 Fluticasone 0.05% [Flonase Nasal [place]] 1 spray NASAL DAILY 09/24/18 Gabapentin [Neurontin] 300 mg PO QHS 09/24/18 Omeprazole 40 mg PO DAILY 09/24/18 Potassium Chloride [K-Tab ER] 20 meq PO DAILY 09/24/18 Levothyroxine Sodium 200 mcg PO DAILY 10/13/18 Calcitriol [Rocaltrol] 1 mcg PO BID #120 capsule 10/14/18 Calcium Carbonate [Tums] 1,000 mg PO 4X/DAYCM #120 tablet 10/14/18 Following Prescrptions Were Given to Patient: Calcitriol [Rocaltrol] 1 mcg PO BID #120 capsule Calcium Carbonate [Tums] 1,000 mg PO 4X/DAYCM #120 tablet Primary Care Physician: Maykel Larose MD [Primary Care Provider] - Please follow up with your Primary Care Physician in: 3-5 Days Please Follow Up With: Krys Drummond MD - Endocrinology When: Within 1 Week, call for appt Disposition: Home Minutes spent on discharge:: 35 Patient Condition:: Stable Medical Necessity - Tobacco Use Smoking Status: Current every day smoker Tobacco Use: Cigarettes Meaningful Use Info Meaningful Use Diagnoses (Choose all that apply): None applicable
--- NOTE | 2018-10-14 11:03 | DS.PCM_ITS ---
Addendum entered and electronically signed by GUEVARA Chin 10/14/18 16:46: Code Visit TSH noted to be 0.01. Free T4 1.64. Free T3 2.9. Current synthroid regimen resumed. Recommend repeat thyroid studies in 4-6 weeks and follow up with endocrinology as previously noted. Original Note: Discharge Date and Diagnosis Date of Admission: 10/13/18 Date of Discharge: 10/14/18 - Primary Discharge Diagnosis 1. Acute on chronic severe hypocalcemia in the context of hypoparathyroidism/Hypothyroidism status post thyroidectomy 2. Hepatitis C 3. 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 Morbid obesity 5. Depression/anxiety 6. GERD - Secondary Discharge Diagnosis Chronic Problems (Last Reviewed 09/25/18 @ 14:42 by Mery Tinsley) Chronic sinusitis (Chronic) Hypoparathyroidism (Chronic) Morbid obesity with BMI of 40.0-44.9, adult (Chronic) Calcium deficiency (Chronic) Hypothyroidism (Chronic) Chronic pain of right knee (Chronic) Vitamin deficiency (Chronic) Neuropathy (Chronic) Low calcium levels (Chronic) Hepatitis C (Chronic) Anemia (Chronic) Hospital Course and Treatment Operations: None Procedures: None Summary of Care Provided: The patient is a 37 year old F admitted 10/13/2018 due to low calcium. 1. Acute on chronic severe hypocalcemia in the context of hypoparathyroidism/Hypothyroidism status post thyroidectomy-calcium gluconate X2 during admission. Increase home calcium carbonate to 1000 mg 4 times daily. Home calcitriol regimen increased to 1 mcg twice daily. Calcium level improved to 7.2 from 5.6 on admission. She will need repeat calcium level drawn within 1 week. Follow-up with primary care physician and endocrinology in 1 week. 2. Hepatitis C- outpatient follow up. 3. 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 Lives in sober living house. 4. Morbid obesity-encouraged diet and lifestyle modifications. 5. Depression/anxiety-continue home bupropion regimen. 6. GERD-continue PPI. General: Alert, Oriented x3, Cooperative HEENT: Atraumatic, PERRLA, EOMI, Normocephalic Neck: Supple, No JVD, Negative Carotid Bruits Lungs: Clear to auscultation, Normal air movement Cardiovascular: Regular rate, Regular Rhythm, Normal S1, Normal S2, No murmurs Abdomen: Bowel Sounds Present, Soft, Non Tender, Non-Distended, Obese Extremities: No clubbing, No cyanosis, No edema, Capillary Refill Less than 3 Seconds Skin: No rashes, No breakdown Musculoskeletal: No Tenderness to Palpation of Joints or Extremities Neurological: Cranial nerves II-XII grossly intact, Neuro grossly intact Psych/Mental Status: Normal Affect, Appropriate Patient seen and examined prior to discharge. Physical assessment as noted above. Patient is stable for discharge with follow up recommendations as noted above. This patient was seen by GUEVARA Chin under the supervision of Dr. Culver. - Physical Exam Vital Signs Temp Pulse Resp BP Pulse Ox 98.6 F 67 16 99/52 L 97 10/14/18 08:26 10/14/18 10:00 10/14/18 08:26 10/14/18 08:26 10/14/18 08:26 Oxygen Delivery Method Room Air Weight: 310 lb 14.687 oz Body Mass Index (BMI) 43.3 Intake and Output for Last 24 Hours 10/12/18 10/13/18 10/14/18 23:59 23:59 23:59 Intake Total 500 / 500 Balance 500 / 500 Laboratory Tests Past 24 Hrs 10/13/18 10/13/18 10/14/18 10:44 10:44 05:15 WBC 7.6 RBC 4.61 Hgb 12.0 Hct 37.4 MCV 81.1 MCH 26.0 L MCHC 32.1 RDW 15.0 H RDW Differential 43.9 Plt Count 226 MPV 10.1 Immature Gran % (Auto) 0.100 Neut % (Auto) 68.7 Lymph % (Auto) 22.8 [place] % (Auto) 6.3 Eos % (Auto) 2.0 Baso % (Auto) 0.1 Absolute Neuts (auto) 5.2 Absolute Lymphs (auto) 1.73 Total Counted Not Reportable Sodium 137 Potassium 3.9 Chloride 105 Carbon Dioxide 27.0 Anion Gap 5 BUN 13 Creatinine 0.80 Estim Creat Clear Calc 108.66 Est GFR (MDRD) Af Amer 105 Est GFR (MDRD) Non-Af 87 BUN/Creatinine Ratio 16.4 Glucose 98 Calcium 5.6 L* 7.2 L Discharge Diet: No Restrictions Discharge Activity: Return to Normal Activity Call your doctor if you observe: Numbness or Tingling, Increased palpitations (irregular heartbeat) Home Medications: Medications to take at Discharge albuterol sulfate HFA 90 mcg/actuation aerosol inhaler 1 - 2 puff INHALATION Q6H PRN #8 g 08/11/18 Bupropion HCl [Bupropion Xl] 150 mg PO DAILY 09/24/18 Ferrous Sulfate 325 mg PO DAILY 09/24/18 Fluticasone 0.05% [Flonase Nasal [place]] 1 spray NASAL DAILY 09/24/18 Gabapentin [Neurontin] 300 mg PO QHS 09/24/18 Omeprazole 40 mg PO DAILY 09/24/18 Potassium Chloride [K-Tab ER] 20 meq PO DAILY 09/24/18 Levothyroxine Sodium 200 mcg PO DAILY 10/13/18 Calcitriol [Rocaltrol] 1 mcg PO BID #120 capsule 10/14/18 Calcium Carbonate [Tums] 1,000 mg PO 4X/DAYCM #120 tablet 10/14/18 Following Prescrptions Were Given to Patient: Calcitriol [Rocaltrol] 1 mcg PO BID #120 capsule Calcium Carbonate [Tums] 1,000 mg PO 4X/DAYCM #120 tablet Primary Care Physician: Maykel Larose MD [Primary Care Provider] - Please follow up with your Primary Care Physician in: 3-5 Days Please Follow Up With: Krys Drummond MD - Endocrinology When: Within 1 Week, call for appt Disposition: Home Minutes spent on discharge:: 35 Patient Condition:: Stable Medical Necessity - Tobacco Use Smoking Status: Current every day smoker Tobacco Use: Cigarettes Meaningful Use Info Meaningful Use Diagnoses (Choose all that apply): None applicable
[2018-10-14] MEDS: buPROPion (XL) 150 MG TABLET.XL PO (11:11)
[2018-10-14] MEDS: Calcitriol 0.25 MCG Capsule 1 MCG PO (11:11)
[2018-10-14] MEDS: Pantoprazole Sodium 40 MG Tablet PO (11:11)
[2018-10-14 11:41] LABS: Thyroid Stim Hormone (TSH) 0.01 uIU/mL (0.358-3.74)
[2018-10-14 16:29] LABS: Free T3 2.9 pg/mL (2.18-3.98); T4 Free Direct 1.64 ng/dL (0.76-1.46)
== END 2018-10-14 11:30 | disposition home or self-care (01) ==
LOC: ED 11:27 → MS3 12:13
PROVIDERS: Nurse Practitioner Family; Admitting Provider Internal Medicine; Emergency Provider Emergency Medicine; Family Provider Internal Medicine; PCP Internal Medicine; Referring Provider Internal Medicine; Visit Provider Internal Medicine
DX: E83.51 Hypocalcemia (principal); E89.0 Postprocedural hypothyroidism; E66.01 Morbid (severe) obesity due to excess calories; Z68.41 Body mass index [BMI] 40.0-44.9, adult; Z71.3 Dietary counseling and surveillance; K21.9 Gastro-esophageal reflux disease without esophagitis; Z79.899 Other long term (current) drug therapy; F41.9 Anxiety disorder, unspecified; F32.9 Major depressive disorder, single episode, unspecified; B19.20 Unspecified viral hepatitis C without hepatic coma; D64.9 Anemia, unspecified; G62.9 Polyneuropathy, unspecified; Z85.850 Personal history of malignant neoplasm of thyroid; F17.210 Nicotine dependence, cigarettes, uncomplicated
CPT/HCPCS: 36415; 80048; 82310; 82330; 84439; 84443; 84481; 85025; 93005; 96374; 99218; 99285; 99406; J7030; A4216; G0378; J0610

== ENCOUNTER → 2018-10-26 | Outpatient (CLI) | payer MEDICAID, SELFPAY ==
[2018-10-26 14:38] VITALS: BMI 42.8
[2018-10-26 17:10] LABS: HIV - WCH Non-Reactive (Nonreactive)
[2018-10-26 18:51] LABS: Chlamydia Trachomatis by PCR Negative (Negative); Neisserai gonorrhoeae by PCR Negative (Negative); Probe Check PASS; Sample Adequacy Control PASS; Specimen Processing Control PASS
[2018-10-28 09:03] LABS: HEPATITIS B SURFACE AG Negative (Negative); HSV 1 IgG > 62.20 index (0.00-0.90); HSV 2 IgG < 0.91 index (0.00-0.90)
[2018-10-30 01:35] LABS: Rapid Plasmin Reagin (RPR) NONREACTIVE (NONREACTIVE)
[2018-10-31 08:51] LABS: HPV APTIMA, High Risk Negative (Negative)
== END | disposition home or self-care (01) ==
PROVIDERS: Family Provider Internal Medicine; PCP Internal Medicine; Referring Provider Nurse Practitioner Women's Health; Visit Provider Nurse Practitioner Women's Health
DX: Z11.3 Encounter for screening for infections with a predominantly sexual mode of transmission (principal)
CPT/HCPCS: 36415; 86592; 86695; 86696; 86703; 87070; 87205; 87340; 87491; 87591; 87624; 88175; G0145

== ENCOUNTER → 2018-11-05 | Outpatient (CLI) | payer MEDICAID, SELFPAY ==
[2018-10-27 10:25] VITALS: BMI 42.8
--- NOTE | 2018-11-05 11:29 | US_ITS ---
STUDY: ULTRASOUND OF THE FEMALE PELVIS - COMPLETE REASON FOR EXAM: Female, 37 years old. Menorrhagia TECHNIQUE: Transabdominal and transvaginal (Transvaginal imaging, if present, was performed for enhanced visualization of uterus and endometrium, and posterior adnexal structures). COMPARISON: FINDINGS: Anteverted uterus in the midline 9.8 x 7.2 x 4.9 cm with normal myometrial echotexture. Endometrium 8.1 mm, normal echotexture. Partially calcified fundal fibroid, 5.9 x 7.2 x 4.5 cm. Normal cervix. No adnexal or cul-de-sac fluid. No adnexal mass or suspicious cyst. Right ovary 20 x 14 x 17 mm, 9 mm dominant follicle, appropriate vascularity. Left ovary 24 x 28 x 21 mm, 60 mm dominant follicle, appropriate vascularity. US/Transvaginal Non- IMPRESSION: Fibroid uterus. Normal thickness and echotexture of the endometrium. Normal ovaries. Electronically Signed: Segundo Chavez MD at 13:47 EDT Tel , Service support ,
--- NOTE | 2018-11-05 11:29 | US_ITS ---
STUDY: ULTRASOUND OF THE FEMALE PELVIS - COMPLETE REASON FOR EXAM: Female, 37 years old. Menorrhagia TECHNIQUE: Transabdominal and transvaginal (Transvaginal imaging, if present, was performed for enhanced visualization of uterus and endometrium, and posterior adnexal structures). COMPARISON: FINDINGS: Anteverted uterus in the midline 9.8 x 7.2 x 4.9 cm with normal myometrial echotexture. Endometrium 8.1 mm, normal echotexture. Partially calcified fundal fibroid, 5.9 x 7.2 x 4.5 cm. Normal cervix. No adnexal or cul-de-sac fluid. No adnexal mass or suspicious cyst. Right ovary 20 x 14 x 17 mm, 9 mm dominant follicle, appropriate vascularity. Left ovary 24 x 28 x 21 mm, 60 mm dominant follicle, appropriate vascularity. US/Pelvic (Non ) IMPRESSION: Fibroid uterus. Normal thickness and echotexture of the endometrium. Normal ovaries. Electronically Signed: Segundo Chavez MD at 13:47 EDT Tel , Service support ,
== END | disposition home or self-care (01) ==
LOC: OPUS 11:27
PROVIDERS: Family Provider Internal Medicine; PCP Internal Medicine; Referring Provider Nurse Practitioner Women's Health; Visit Provider Nurse Practitioner Women's Health
DX: N92.1 Excessive and frequent menstruation with irregular cycle (principal); R10.2 Pelvic and perineal pain
CPT/HCPCS: 76830; 76856; 93976

== ENCOUNTER 2019-01-13 13:08 | Emergency (ER) | payer MEDICAID, SELFPAY ==
[2019-01-05 15:27] VITALS: BMI 42.8
[2019-01-13 13:14] VITALS: BP 125/88; PULSE 79; RESP 17; TEMP 36.1; O2SAT 98; BMI 42.0
[2019-01-13 14:27] LABS: Absolute Lymphocyte Count 1.65 X10^3/uL (0.83-4.51); Absolute Neutrophil Count 5.3 X10^3/uL (2.0-7.7); Basophil# 0.02 X10^3/uL; Basophil% 0.3 % (0-1); Eosinophil# 0.15 X10^3/uL; Hematocrit 40.6 % (37-47); Lymphocyte # 1.65 X10^3/ul (4.0); Lymphocyte % 21.7 % (19-41); Mean Corpuscular Hgb 26.6 pg (27.0-32.0); Mean Corpuscular Volume 83.2 fL (81-99); Mean Platelet Vol. 10.8 fl (6.2-12.0); Monocyte# 0.45 X10^3/uL; Monocyte% 5.9 % (0-10); NRBC Flagged by Analyzer 0 % (0-5); Neutrophil # 5.31 X10^3/uL (2.7-7.7); Neutrophil % 69.8 % (47-70); Platelet Count 191 K/mm3 (150-450); RBC Distribution Width SD 45.3 fl (35.1-43.9); Red Blood Count 4.88 M/mm3 (4.2-5.4); White Blood Count 7.6 K/mm3 (4.4-11.0)
[2019-01-13 14:32] LABS: Anion Gap 2 (5-15); BUN 13 mg/dL (7-18); BUN/Creat Ratio 14.2 RATIO (10-20); Calcium,Total 8.4 mg/dL (8.5-10.1); Chloride 103 mmol/L (98-107); Creatinine, Serum 0.92 mg/dL (0.55-1.02); EST Glomerular Filtration Rate 73 mL/min (>60); Est Glom Filt Rate - Afr Amer 89 mL/min (>60); Estimated Creatinine Clearance 93.58 ml/min; Glucose 89 mg/dL (74-106); Potassium 4.1 mmol/L (3.5-5.1); Sodium Level 136 mmol/L (136-145)
[2019-01-13 16:06] VITALS: BP 128/79; PULSE 63; RESP 16; O2SAT 100
--- NOTE | 2019-01-13 16:25 | ED.VISSUMM ---
- ER Visit Summary Date of Service: 01/13/19 Chief Complaint: I think my calcium is low again History of Present Illness: The patient is a 38 F history of hypocalcemia from partial parathyroidectomy. She states she did not feel is a her calcium is low again has had some cramping. She denies any fever, nausea, vomiting, or diarrhea. No dysuria or fever. Physical Examination: Well-appearing female vital signs stable afebrile. No acute distress. H EENT exam unremarkable. Neck nontender no lymphadenopathy. Lungs clear to auscultation bilaterally. Heart regular rhythm no murmur. Abdomen soft and nontender. Extremities moves all 4. Calves are nontender without edema. Neurologically she is awake and alert. Currently having no muscle spasms no facial spasms. Test Results: CBC normal white count 7. Hemoglobin 13. Electrolytes normal calcium is just below normal at 8.4 with normal being 8.5. She is been symptomatic in the past her calciums are running 5. Emergency Department Course and Treatment: Repeat exam patient is doing well. She will be discharged. We will have her test results. Treatment Plan: Continue current medications. Follow-up with her doctor. I will write her a new prescription for calcium. Disposition: Discharge Impression: Mild chronic hypocalcemia This note was generated with [employer] dictation software. It may contain incorrect words, spelling, and punctuation that were not noted in review of the chart prior to signing ED Disposition - Plan for ED Patient: Referrals: Maykel Larose MD [Primary Care Provider] -
--- NOTE | 2019-01-13 16:28 | ED.DEP ---
ED Disposition - Plan for ED Patient: Disposition: Home or Assisted Living Prescriptions: Calcitriol 0.25 mcg PO DAILY #30 cap Prescription Printed Referrals: Maykel Larose MD [Primary Care Provider] - As Needed Additional Instructions: Continue your current medications.
[2019-01-13 16:53] VITALS: PULSE 63; RESP 16; O2SAT 100
== END 2019-01-13 16:55 | disposition home or self-care (01) ==
PROVIDERS: Emergency Provider Emergency Medicine; Family Provider Internal Medicine; PCP Internal Medicine
DX: E83.51 Hypocalcemia (principal); R25.2 Cramp and spasm; Z72.0 Tobacco use
CPT/HCPCS: 80048; 85025; 99284; A4216

== ENCOUNTER → 2019-02-02 | Outpatient (CLI) | payer MEDICAID, SELFPAY ==
[2019-02-02 10:36] VITALS: BMI 42.3
[2019-02-02 14:38] LABS: Hepatitis C Antibody REACTIVE (Nonreactive)
[2019-02-04 20:07] LABS: HCV Quant. RNA PCR 7390000 IU/mL (.)
[2019-02-05 15:53] LABS: HCV log 10 6.869 (.)
== END | disposition home or self-care (01) ==
LOC: BIMLAB 11:18
PROVIDERS: Family Provider Internal Medicine; PCP Internal Medicine; Visit Provider Nurse Practitioner Family
DX: B19.20 Unspecified viral hepatitis C without hepatic coma (principal)
CPT/HCPCS: 36415; 86803; 87521; 87522

== ENCOUNTER → 2019-02-05 | Outpatient (CLI) | payer MEDICAID, SELFPAY ==
[2018-10-27 10:25] VITALS: BMI 42.8
--- NOTE | 2019-01-08 04:11 | HP.PCM_ITS ---
- Problem List (1) Methamphetamine abuse in remission Status: Acute Comment: No use since Jun 2018. Living at [facility] (10/26/18) (2) Uterine fibroid Status: Acute (3) Anemia Status: Chronic (4) Hepatitis C Status: Chronic Qualifiers: (5) Hypoparathyroidism Status: Chronic (6) Hypothyroidism Status: Chronic (7) Low calcium levels Status: Chronic (8) Morbid obesity with BMI of 40.0-44.9, adult Status: Chronic History and Physical Date of Admission: 01/14/19 Intake Vital Signs 01/05/19 Body Mass Index (BMI) 42.8 01/05/19 Height 5 ft 11 in 01/05/19 Weight: 300 lb 6 oz 01/05/19 Body Mass Index (BMI) 41.8 01/05/19 Blood Pressure 110/64 01/05/19 Blood Pressure Location Rt brachial Intake Visit Reasons: pre op LAVH bilat. salp cysto [employer] Required: No Is patient in pain?: No Allergies amoxicillin Allergy (Intermediate, Verified 01/05/19 15:26) Hives naproxen Allergy (Verified 01/05/19 15:26) Swelling Medications albuterol sulfate HFA 90 mcg/actuation aerosol inhaler 1 - 2 puff INHALATION Q6H PRN #8 g 08/11/18 [Rx Confirmed 01/05/19] Bupropion HCl [Bupropion Xl] 150 mg PO DAILY 09/24/18 [History Confirmed 01/05/19] Ferrous Sulfate 325 mg PO DAILY 09/24/18 [History Confirmed 01/05/19] Fluticasone 0.05% [Flonase Nasal [place]] 1 spray NASAL DAILY 09/24/18 [History Confirmed 01/05/19] Omeprazole 40 mg PO DAILY 09/24/18 [History Confirmed 01/05/19] Potassium Chloride [K-Tab ER] 20 meq PO DAILY 09/24/18 [History Confirmed 01/05/19] Levothyroxine Sodium 200 mcg PO DAILY 10/13/18 [History Confirmed 01/05/19] gabapentin 300 mg capsule 300 mg PO QHS #90 cap 10/20/18 [Rx Confirmed 01/05/19] meloxicam 15 mg tablet 15 mg PO DAILY #30 tab 11/11/18 [Rx Confirmed 01/05/19] calcitriol 0.25 mcg capsule 1 mcg PO BID #120 cap 11/26/18 [Rx Confirmed 01/05/19] calcium carbonate 200 mg calcium (500 mg) chewable tablet See Rx Instructions .ROUTE .COMPLEX #224 each 12/22/18 [Rx Confirmed 01/05/19] Is last menstrual period known: Yes Last Menstral Period: 12/13/18 Post menopausal: No Patient : No : No [facility] History Vitamin deficiency (Chronic) Neuropathy (Chronic) Low calcium levels (Chronic) Hepatitis C (Chronic) Anemia (Chronic) Thyroid cancer (Acute) Drug abuse (Resolved) Surgical History HISTORY PARTIAL PARATHYROIDECTOMY (Acute) History of (Acute) History of thyroidectomy (Acute) History of tubal ligation (Acute) Family History Mother Alcoholism Anxiety Grandfather Heart disease Hypertension Social History (Updated 01/05/19 @ 15:43 by Jessa Schneider MD) Smoking Status: Current every day smoker alcohol intake: never substance use type: former substance user Date of last use: 2017, methamphetamine, other details: Heroin what type of physical activity do you participate in: none HPI pre op LAVH bilat. salp cysto: Details: ENRIQUE BEE is a 38 year old who presents for preop visit. she has heavy bleeding and a 7 cm fibroid. she is not anemic currently Female Reproductive History Last Menstral Period: 12/13/18 Pregancy History 4 Elective abortions Hx Para 2 Spontaneous abortions 2 Hx # Term Pregnancies 2 Ectopic pregnancies Hx # Pregnancies Multiple births # of living children Past Pregnancies Del. Date Name GA/Weeks Outcome Route Bth Weight Gen Labor Lgth Anesthesia Del Locatn Provider FOB 07/18/03 Luis 37 live - full term 11 Male [facility] Dr Arauz 01/30/11 [place] 40 live - full term 6' [facility] Constitutional: Denies fatigue, fever(s), headache(s), increased appetite, poor appetite, weight gain or weight loss Cardio Card: Denies chest pain Resp Resp: Denies cough or dyspnea GI GI: Reports as per HPI; denies abdominal pain, constipation, nausea or vomiting : Reports as per HPI; denies difficulty urinating, painful urination, nipple discharge, urinary frequency, urinary incontinence, urinary hesitancy, urinary urgency, vaginal discharge, vaginal dryness, vaginal odor or vaginal itching Skin Skin/Breast: Denies change in hair, breast lump, breast pain, breast skin changes or nipple discharge Exam Const General: cooperative, healthy appearing, comfortable, no acute distress, well developed Nutritional Appearance: average body habitus Orientation: alert HENMT Head: normal to inspection, normocephalic Neck Neck: normal visual inspection, trachea midline Thyroid: thyroid normal Resp Effort & Inspection: normal respiratory effort GI Inspection: normal to inspection, non-distended Palpation: soft, no hepatosplenomegaly General: bladder normal to palpation External Female Exam: normal external appearance, normal appearance of the urethra Urethra: normal appearance of the urethra, normal palpation, no discharge Speculum Exam - Vagina: normal appearance of the vagina, normal vaginal discharge Speculum Exam - Cervix: normal appearance of the cervix, nontender Bimanual Exam- Vagina & Uterus: normal bimanual exam, uterine size normal, bladder normal to palpation, uterine shape normal, No cervical tenderness, uterine mobility normal, uterine consistency normal, normal cervical palpation, uterus non-tender Bimanual Exam- Adnexa, other: normal adnexae, adnexae mobile, no adnexal masses, pelvic support normal Pelvic Support: normal Skin General: no rashes or lesions noted Assessment & Plan Problems 1. Uterine fibroid D25.9 Plan discussed surgical risks including risks of anesthesia, infection, bleeding, injury to bowel, bladder or blood vessels, and patient wishes to proceed with surgery. Coding Level of Care Code No Charge Diagnoses Uterine fibroid D25.9 UPDATE- I have seen the patient and performed any clinically relevant updates to the history and physical exam. Jessa Schneider MD
[2019-01-08 13:15] LABS: Hematocrit 41.5 % (37-47); Hemoglobin 13.5 g/dl (12.0-15.0); Mean Corp Hgb Conc 32.5 g/gl (32-36); Mean Corpuscular Hgb 25.9 pg (27.0-32.0); Mean Corpuscular Volume 79.5 fL (81-99); Mean Platelet Vol. 10.9 fl (6.2-12.0); Platelet Count 205 K/mm3 (150-450); RBC Distribution Width CV 15.6 % (11.6-14.6); Red Blood Count 5.22 M/mm3 (4.2-5.4); White Blood Count 7.7 K/mm3 (4.4-11.0)
[2019-01-08 13:18] LABS: Scan Indicated on CBC? Y/N NO
[2019-01-08 13:49] LABS: AST(SGOT) 46 U/L (15-37); Alanine Aminotransfer ALT/SGPT 83 U/L (13-56); Albumin, Serum 3.5 g/dL (3.2-5.0); Alkaline Phosphatase 65 U/L (45-117); Anion Gap 7 (5-15); BUN 17 mg/dL (7-18); BUN/Creat Ratio 17.3 RATIO (10-20); Bilirubin, Direct 0.15 mg/dL (0.00-0.30); Calcium,Total 8.1 mg/dL (8.5-10.1); Chloride 105 mmol/L (98-107); Creatinine, Serum 0.98 mg/dL (0.55-1.02); EST Glomerular Filtration Rate 67 mL/min (>60); Est Glom Filt Rate - Afr Amer 82 mL/min (>60); Globulin 4.3 g/dL (2.2-4.2); Glucose 84 mg/dL (74-106); Potassium 3.9 mmol/L (3.5-5.1); Protein, Total 7.8 g/dL (6.4-8.2); Sodium Level 138 mmol/L (136-145); Thyroid Stim Hormone (TSH) 1.05 uIU/mL (0.358-3.74)
[2019-02-02 10:36] VITALS: BMI 42.3
== END | disposition home or self-care (01) ==
LOC: SDC 07:53
PROVIDERS: Anesthesiology; Family Provider Internal Medicine; PCP Internal Medicine; Referring Provider Obstetrics & Gynecology; Visit Provider Obstetrics & Gynecology
DX: Z01.818 Encounter for other preprocedural examination (principal); E07.9 Disorder of thyroid, unspecified; Z79.52 Long term (current) use of systemic steroids
CPT/HCPCS: 36415; 80048; 80076; 84443; 85027; 86850; 86900

== ENCOUNTER → 2019-05-20 10:42 | Outpatient (CLI) | payer MEDICAID, SELFPAY ==
[2019-05-20 09:59] VITALS: BMI 42.3
[2019-05-20 12:58] LABS: ALB/GLOB Ratio 0.8 RATIO (0.9-2.4); AST(SGOT) 48 U/L (15-37); Alanine Aminotransfer ALT/SGPT 81 U/L (13-56); Albumin, Serum 3.3 g/dL (3.2-5.0); Alkaline Phosphatase 76 U/L (45-117); Anion Gap 6 (5-15); BUN 17 mg/dL (7-18); BUN/Creat Ratio 18.9 RATIO (10-20); Calcium,Total 7.9 mg/dL (8.5-10.1); Chloride 103 mmol/L (98-107); EST Glomerular Filtration Rate 75 mL/min (>60); Est Glom Filt Rate - Afr Amer 91 mL/min (>60); Globulin 4.3 g/dL (2.2-4.2); Glucose 94 mg/dL (74-106); Potassium 4.4 mmol/L (3.5-5.1); Protein, Total 7.6 g/dL (6.4-8.2); Sodium Level 139 mmol/L (136-145); T4 Free Direct 1.16 ng/dL (0.76-1.46); Thyroid Stim Hormone (TSH) 4.14 uIU/mL (0.358-3.74)
== END ==
PROVIDERS: Family Provider Internal Medicine; PCP Internal Medicine; Visit Provider Nurse Practitioner Family
DX: E03.9 Hypothyroidism, unspecified (principal); E20.9 Hypoparathyroidism, unspecified
CPT/HCPCS: 36415; 80053; 84439; 84443

== ENCOUNTER → 2021-03-22 11:32 | Outpatient (CLI) | payer MEDICAID, SELFPAY ==
[2021-03-22 12:17] LABS: Bacteria 0 SEEN /hpf (None Seen); Mucous, Urine 0 SEEN /hpf (<or=2+); Red Blood Cells-Urine 0 SEEN /hpf (0-5)
[2021-03-22 12:20] LABS: Absolute Lymphocyte Count 1.87 X10^3/uL (0.83-4.51); Absolute Neutrophil Count 6.5 X10^3/uL (2.0-7.7); Basophil# 0.05 X10^3/uL; Basophil% 0.5 % (0-1); Eosinophils% 2.2 % (0-5); Hematocrit 38.9 % (37-47); Hemoglobin 12.2 g/dL (12.0-15.0); Lymphocyte # 1.87 X10^3/ul (0.83-4.51); Lymphocyte % 20.3 % (19-41); Mean Corp Hgb Conc 31.4 g/dL (32-36); Mean Corpuscular Hgb 24.3 pg (27.0-32.0); Mean Corpuscular Volume 77.5 fL (81-99); Mean Platelet Vol. 10.5 fl (6.2-12.0); Monocyte# 0.54 X10^3/uL; Monocyte% 5.9 % (0-10); NRBC Flagged by Analyzer 0 % (0-5); Neutrophil # 6.51 X10^3/uL (2.7-7.7); Neutrophil % 70.7 % (47-70); Platelet Count 265 K/mm3 (150-450); RBC Distribution Width CV 17.2 % (11.6-14.6); RBC Distribution Width SD 47.4 fl (35.1-43.9); Red Blood Count 5.02 M/mm3 (4.2-5.4); White Blood Count 9.2 K/mm3 (4.4-11.0)
[2021-03-22 13:04] LABS: ALB/GLOB Ratio 0.8 RATIO (0.9-2.4); AST(SGOT) 29 U/L (15-37); Alanine Aminotransfer ALT/SGPT 41 U/L (13-56); Albumin, Serum 3.3 g/dL (3.2-5.0); Alkaline Phosphatase 56 U/L (45-117); Anion Gap 9 (5-15); BUN 17 mg/dL (7-18); BUN/Creat Ratio 15.7 RATIO (10-20); Calcium,Total 6.3 mg/dL (8.5-10.1); Chloride 104 mmol/L (98-107); Cholesterol 149 mg/dL (200); Creatinine, Serum 1.08 mg/dL (0.55-1.02); EST Glomerular Filtration Rate 60 mL/min (>60); Est Glom Filt Rate - Afr Amer 73 mL/min (>60); Globulin 4.3 g/dL (2.2-4.2); Glucose 105 mg/dL (74-106); High Density Lipoprotein 68 mg/dL; Potassium 3.1 mmol/L (3.5-5.1); Protein, Total 7.6 g/dL (6.4-8.2); Sodium Level 138 mmol/L (136-145); T4 Free Direct 0.56 ng/dL (0.76-1.46); Triglycerides 124 mg/dL; Very Low Density Lipoprotein 25 mg/dL (5-40)
[2021-03-22 13:22] LABS: HIV - WCH Non-Reactive (Nonreactive); Hepatitis B Surface Antigen Non-Reactive (Nonreactive); Syphilis Antibodies Non-reactive; Vitamin D,25 Hydroxy 27.7 ng/mL
[2021-03-22 15:06] LABS: Color, Urine Yellow (Yellow); Glucose, Dipstick Normal (Normal); Ketone-Dipstick 5 mg/dl (Negative); Leukocyte Esterase-Dipstick 25 /ul (Negative); Nitrite-Dipstick Negative (Negative); Occult Blood-Urine 150 /ul (Negative); Protein-Dipstick 30 mg/dl (Negative); Urine Bilirubin Dipstick Negative (Negative); Urine Clarity Clear (Clear); Urine Urobilinogen 1 mg/dl (Normal)
[2021-03-22 15:12] LABS: Squamous Epithelial Cells - UA 0-5 SEEN /hpf (5-10); White Blood Cells 0-5 SEEN /hpf (0-5)
[2021-03-22 15:13] LABS: Amphetamine Urine VISTA POSITIVE (<1000 ng/mL); Barbiturate Urine VISTA NEGATIVE (< 200 ng/mL); Benzodiazepine Urine VISTA NEGATIVE (< 200 ng/mL); Cocaine Urine VISTA NEGATIVE (< 300 ng/mL); Ecstacy Urine VISTA POSITIVE (< 500 ng/mL); Methadone Urine VISTA NEGATIVE (< 300 ng/mL); PCP Urine VISTA NEGATIVE (< 25 ng/mL); THC Urine VISTA NEGATIVE (< 50 ng/mL); Vista UDS pH Range 6
[2021-03-22 16:35] LABS: Probe Check PASS; Sample Adequacy Control PASS; Specimen Processing Control PASS; Trichomonas Vag DNA by PCR Negative (Negative)
[2021-03-22 17:20] LABS: Chlamydia Trachomatis by PCR Negative (Negative); Probe Check PASS
[2021-03-22 17:21] LABS: Neisserai gonorrhoeae by PCR Negative (Negative); Sample Adequacy Control PASS; Specimen Processing Control PASS
[2021-03-25 10:33] LABS: HSV 2 IgG < 0.91 index (0.00-0.90)
== END ==
PROVIDERS: PCP Internal Medicine; Referring Provider Physician Assistant; Visit Provider Physician Assistant
DX: Z00.00 Encounter for general adult medical examination without abnormal findings (principal); D64.9 Anemia, unspecified; B19.20 Unspecified viral hepatitis C without hepatic coma; E56.9 Vitamin deficiency, unspecified; E03.9 Hypothyroidism, unspecified; E58 Dietary calcium deficiency; E20.9 Hypoparathyroidism, unspecified; F11.10 Opioid abuse, uncomplicated; F15.11 Other stimulant abuse, in remission; Z11.3 Encounter for screening for infections with a predominantly sexual mode of transmission; Z13.220 Encounter for screening for lipoid disorders; Z13.6 Encounter for screening for cardiovascular disorders
CPT/HCPCS: 36415; 80053; 80061; 80307; 81001; 82306; 84439; 84443; 85025; 86695; 86696; 86703; 86780; 87340; 87491; 87591; 87661

== ENCOUNTER → 2022-02-01 | Outpatient (CLI) | payer MEDICAID, SELFPAY ==
[2022-02-01 14:59] LABS: Absolute Lymphocyte Count 1.54 X10^3/uL (0.83-4.51); Absolute Neutrophil Count 5.1 X10^3/uL (2.0-7.7); Basophil# 0.03 X10^3/uL; Basophil% 0.4 % (0-1); Eosinophil# 0.15 X10^3/uL; Eosinophils% 2.1 % (0-5); Hematocrit 38.7 % (37-47); Lymphocyte # 1.54 X10^3/ul (0.83-4.51); Lymphocyte % 21.3 % (19-41); Mean Corpuscular Hgb 25.6 pg (27.0-32.0); Mean Corpuscular Volume 82.5 fL (81-99); Mean Platelet Vol. 10.2 fl (6.2-12.0); Monocyte% 5.5 % (0-10); NRBC Flagged by Analyzer 0 % (0-5); Neutrophil % 70.4 % (47-70); Platelet Count 231 K/mm3 (150-450); RBC Distribution Width CV 15.1 % (11.6-14.6); RBC Distribution Width SD 44.6 fl (35.1-43.9); Red Blood Count 4.69 M/mm3 (4.2-5.4); White Blood Count 7.2 K/mm3 (4.4-11.0)
[2022-02-01 15:09] LABS: Color, Urine Yellow (Yellow); Glucose, Dipstick Normal (Normal); Ketone-Dipstick Negative (Negative); Leukocyte Esterase-Dipstick 500 /ul (Negative); Nitrite-Dipstick Positive (Negative); Occult Blood-Urine 25 /ul (Negative); Protein-Dipstick 30 mg/dl (Negative); Urine Bilirubin Dipstick Negative (Negative); Urine Clarity Sl. Cloudy (Clear); Urine Urobilinogen Normal (Normal)
[2022-02-01 15:32] LABS: ALB/GLOB Ratio 0.8 RATIO (0.9-2.4); AST(SGOT) 26 U/L (15-37); Alanine Aminotransfer ALT/SGPT 38 U/L (13-56); Albumin, Serum 3.1 g/dL (3.2-5.0); Alkaline Phosphatase 53 U/L (45-117); Anion Gap 6 (5-15); BUN 14 mg/dL (7-18); BUN/Creat Ratio 15.1 RATIO (10-20); Calcium,Total 7.3 mg/dL (8.5-10.1); Chloride 105 mmol/L (98-107); Creatinine, Serum 0.92 mg/dL (0.55-1.02); EST Glomerular Filtration Rate 71 mL/min (>60); Est Glom Filt Rate - Afr Amer 86 mL/min (>60); Glucose 84 mg/dL (74-106); Potassium 3.9 mmol/L (3.5-5.1); Protein, Total 7.1 g/dL (6.4-8.2); Sodium Level 140 mmol/L (136-145); Thyroid Stim Hormone (TSH) 6.78 uIU/mL (0.358-3.74)
[2022-02-01 15:58] LABS: Bacteria 4+ /hpf (None Seen); Red Blood Cells-Urine 0-5 SEEN /hpf (0-5); Squamous Epithelial Cells - UA 0-5 SEEN /hpf (5-10); White Blood Cells 10-25 SEEN /hpf (0-5)
[2022-02-01 15:59] LABS: Mucous, Urine 1+ /hpf (<or=2+)
[2022-02-01 16:22] LABS: HIV - WCH Non-Reactive (Nonreactive); Hepatitis B Surface Antigen Non-Reactive (Nonreactive); Hepatitis C Antibody Preliminary Reactive (Nonreactive); Syphilis Antibodies Non-reactive; Vitamin D,25 Hydroxy 32.6 ng/mL
[2022-02-01 16:33] LABS: Chlamydia Trachomatis by PCR Negative (Negative); Neisserai gonorrhoeae by PCR Negative (Negative); Probe Check PASS; Sample Adequacy Control PASS; Specimen Processing Control PASS
[2022-02-01 16:54] LABS: T4 Free Direct 1.09 ng/dL (0.76-1.46)
== END | disposition home or self-care (01) ==
LOC: BIMLAB 13:55
PROVIDERS: PCP Internal Medicine; Referring Provider Physician Assistant; Visit Provider Physician Assistant
DX: E03.9 Hypothyroidism, unspecified (principal); F32.9 Major depressive disorder, single episode, unspecified; D64.9 Anemia, unspecified; B19.20 Unspecified viral hepatitis C without hepatic coma; Z11.3 Encounter for screening for infections with a predominantly sexual mode of transmission; E56.9 Vitamin deficiency, unspecified
CPT/HCPCS: 36415; 80053; 81001; 82306; 84439; 84443; 85025; 86703; 86780; 86803; 87070; 87086; 87088; 87186; 87205; 87340; 87491; 87591

== ENCOUNTER 2022-07-22 16:03 | Emergency (ER) | payer MEDICAID, SELFPAY ==
[2022-07-22 16:03] VITALS: BP 134/106; PULSE 111; RESP 18; TEMP 35.9; O2SAT 100; BMI 31.4
[2022-07-22 16:18] VITALS: BP 156/110; PULSE 78; RESP 18; O2SAT 97
--- NOTE | 2022-07-22 17:03 | EDS_ITS ---
HPI History of Present Illness Chief Complaint: Abn Labs Narrative Narrative: 41-year-old female presenting for evaluation of weakness. She states she has a history of hypothyroidism, calcium deficiency, hypoparathyroidism. She states she was evicted from her home in [facility] and has been here living alone in [place]. Apparently all of her medicine is in a storage unit in [place]. She states she has been unable to get this. She states that her primary care physician is Dr. Larose. She states she has not reached out to her for any refills of her medications. Patient does report urinary and does get frequent UTIs. She denies fever. She states has been drinking plenty of water follow-up with doctors. She states has been on her last menstrual period for about 12 days. She states she does have a history of heroin abuse and methamphetamine abuse. She has been in remission. She states she has been doing so well but on Friday of this week she used meth. She states that her mind is not right. [facility] Medical History Anemia Drug abuse Hepatitis C Low calcium levels Neuropathy Thyroid cancer Vitamin deficiency Home Medications albuterol sulfate 90 mcg/actuation aerosol inhaler 1 - 2 puff inhalation Q6H PRN shortness of breath or wheezing #6.7 grams 01/25/22 [Rx Last Taken Unknown] bupropion HCl 150 mg 24 hr tablet, extended release 150 mg PO DAILY #90 tabs 02/01/22 [Rx Last Taken Unknown] calcitriol 0.5 mcg capsule 0.5 mcg PO BID #180 caps 02/01/22 [Rx Last Taken Unknown] calcium carbonate 400 mg calcium (1,000 mg) chewable tablet 800 mg PO .QID #240 tabs 02/01/22 [Rx Last Taken Unknown] cholecalciferol (vitamin D3) 50 mcg (2,000 unit) capsule (Vitamin D3) 50 mcg PO DAILY #90 caps 02/01/22 [Rx Last Taken Unknown] ferrous sulfate 325 mg (65 mg iron) tablet 325 mg PO DAILY #90 tabs 02/01/22 [Rx Last Taken Unknown] fluticasone propionate 50 mcg/actuation nasal spray,suspension 1 spray intranasal DAILY ALLEGIES #16 grams 02/01/22 [Rx Last Taken Unknown] gabapentin 100 mg capsule 100 mg PO BID #180 caps 02/01/22 [Rx Last Taken Unknown] gabapentin 300 mg capsule 300 mg PO QHS #90 caps 02/01/22 [Rx Last Taken Unknown] levothyroxine 200 mcg tablet 200 mcg PO DAILY THYROID #90 tabs 02/01/22 [Rx Last Taken Unknown] levothyroxine 25 mcg tablet 25 mcg PO DAILY #90 tabs 02/01/22 [Rx Last Taken Unknown] meloxicam 15 mg tablet 15 mg PO ONCE PRN Arthritis, Pain #30 tabs 02/01/22 [Rx Last Taken Unknown] omeprazole 40 mg capsule,delayed release 40 mg PO DAILY GERD #90 caps 02/01/22 [Rx Last Taken Unknown] potassium chloride 20 mEq tablet,extended release 20 meq PO DAILY POTASSIUM #90 tabs 02/01/22 [Rx Last Taken Unknown] cephalexin 500 mg capsule 500 mg PO Q12 #14 CAPSULES 07/22/22 [Rx Last Taken Unknown] Allergy/AdvReac Type Severity Reaction Status Date / Time amoxicillin Allergy Intermediate Hives Verified 07/22/22 16:03 naproxen Allergy Swelling Verified 07/22/22 16:03 Family History Mother Alcoholism Anxiety Grandfather Heart disease Hypertension Surgical History History of History of thyroidectomy History of tubal ligation HISTORY PARTIAL PARATHYROIDECTOMY Social History (Updated 02/01/22 @ 13:37 by KATHIE Whitlock) Smoking Status: Current every day smoker tobacco type: cigarettes alcohol intake: never substance use type: methamphetamine and other details: Heroin what type of physical activity do you participate in: none ROS ROS ED Constitutional Constitutional ED: Denies chills or fever(s) Eyes Eyes: Denies change in vision or diplopia ENT ENT ED: Denies ear pain or rhinorrhea Cardiovascular Cardiovascular: Denies chest pain or palpitations Respiratory/Chest Respiratory/Chest: Denies cough, dyspnea or dyspnea on exertion Gastrointestinal Gastrointestinal: Denies abdominal pain, nausea or vomiting Genitourinary Genitourinary ED: Reports dysuria, hematuria and urinary frequency Musculoskeletal Musculoskeletal: Denies arthralgias or back pain Integumentary Denies abscess or Abrasions Neurologic Neurologic: Denies headache(s) or paresthesias Psychiatric Psychiatric: Reports anxiety; Denies suicidal ideation or suicidal thoughts EXAM Physical Exam Const Vital Signs: 07/22/22 16:03 07/22/22 17:15 07/22/22 16:18 Temperature 96.7 F L Temperature Source Temporal Pulse Rate 111 H 78 Pulse Rate [Lying] Pulse Rate [Sitting (for 1 minute prior to obtaining)] Pulse Rate [Standing (for 1 minute prior to obtaining)] Respiratory Rate 18 18 Respiratory Effort Normal Non-Labored Respiratory Pattern Normal Blood Pressure 134/106 H 156/110 H Blood Pressure [Lying] Blood Pressure [Sitting (for 1 minute prior to obtaining)] Blood Pressure [Standing (for 1 minute prior to obtaining)] Blood Pressure Mean 115 125 Blood Pressure Mean [Lying] Blood Pressure Mean [Sitting (for 1 minute prior to obtaining)] Blood Pressure Mean [Standing (for 1 minute prior to obtaining)] Pulse Ox 100 97 Oxygen Delivery Method Room Air Room Air 07/22/22 17:23 07/22/22 18:18 07/22/22 18:56 Temperature 98.1 F Temperature Source Pulse Rate 74 79 Pulse Rate [Lying] 75 Pulse Rate [Sitting (for 1 minute prior to obtaining)] 83 Pulse Rate [Standing (for 1 minute prior to obtaining)] 95 Respiratory Rate 16 18 Respiratory Effort Respiratory Pattern Blood Pressure 134/118 H 153/107 H Blood Pressure [Lying] 147/99 H Blood Pressure [Sitting (for 1 minute prior to obtaining)] 143/116 H Blood Pressure [Standing (for 1 minute prior to obtaining)] 162/119 H Blood Pressure Mean 123 Blood Pressure Mean [Lying] 115 Blood Pressure Mean [Sitting (for 1 minute prior to obtaining)] 125 Blood Pressure Mean [Standing (for 1 minute prior to obtaining)] 133 Pulse Ox 98 97 Oxygen Delivery Method Room Air Positive well nourished Constitutional Narrative: Awake, resting on the bed, playing with her phone. General Appearance ED: NAD; Negative for pallor HEENT Reports moist mucous membranes Eyes PERRL and EOMs intact bilaterally General Eye ED: Negative for pale conjunctiva or scleral icterus Neck no lymphadenopathy Chest Wall inspection of chest normal and palpation of chest normal Resp normal respiratory effort and clear to auscultation bilaterally Auscultation: Negative for rales, rhonchi or wheezes Cardio regular rhythm Rate: tachycardic GI normal to inspection, nondistended, normoactive bowel sounds Palpation: Negative for soft, tender or guarding Extremity normal to inspection Neuro oriented x3 and CN's II-XII intact bilaterally Sensorium / Orientation: alert Psych mental status grossly normal Skin no rashes or lesions noted and no wounds General Skin Exam: Negative for jaundice or pallor MDM MDM MDM Narrative Medical decision making narrative: Patient presenting with generalized weakness. She states she is feeling like her thyroid is low. She states he is also supposed to be on calcium and has not been taking this. Patient reports urinary symptoms as well. Recently used methamphetamine and states she has been in remission. States she has not used again. She feels a little lightheaded and dizzy. Ivor-Hallpike negative. Differential at this point UTI, hypothyroid, low calcium, dehydration, anemia, methamphetamine abuse, medical noncompliance. CBC to assess for white blood cell count, hemoglobin, platelets, differential. CMP to assess liver function with history of hep C, renal function for dehydration, electrolytes, glucose, anion gap. Urinalysis to assess for UTI as patient is having urinary complaints. Thyroid studies to assess for low thyroid. Orthostatic vital signs to assess for her dizziness/lightheadedness to make sure she is not orthostatic. hCG to assess for . Urine drug screen to assess for drugs of abuse. I did check orthostatic vital signs and these are negative. CBC shows that no leukocytosis with a white blood cell count 8.3. Hemoglobin stable 11.9. No left shift. Platelet count normal at 298. Liver function testing is normal. Renal function is also normal. Potassium slightly low at 3.3 it is repleted with oral potassium. Her calcium is also low at 6.9 and she was given her home dose of oral calcium carbonate. TSH today is high at 44.7, free T4 0.65, free T3 1.0. Urinalysis consistent with infection she started on Keflex here with the first dose in the ER. Urinalysis positive for amphetamines, MDMA, cannabinoids. Social work was sent in to talk to her to give her resources. I spoke with Dr. Servando Carmona in regards to her work-up he states that he can get her in the office tomorrow and restart her medications if she shows up, but she had no showed her last 3 visits. I did discuss this with the patient. She states she is amenable to this. She also states that at this point she sent somebody to curing pickling packer her medications from the storage unit. I did urge her to continue to follow-up because she will need repeat lab work to ensure she is improving. She acknowledged understanding of this. Impression: 1. Bladder infection 2. Generalized weakness 3. Hypokalemia 4. Hypocalcemia 5. Dehydration 6. Hypothyroidism 7. Drug abuse Lab Data Attestation: I reviewed the patient's lab results. Labs: Laboratory Results - last 24 hr 07/22/22 07/22/22 07/22/22 17:10 17:10 17:10 WBC 8.3 RBC 4.73 Hgb 11.9 L Hct 38.0 MCV 80.3 L MCH 25.2 L MCHC 31.3 L RDW Std Deviation 46.8 H RDW Coeff of Bertin 16.4 H Plt Count 298 MPV 10.0 Immature Gran % (Auto) 0.400 Neut % (Auto) 70.2 H Lymph % (Auto) 21.8 [place] % (Auto) 5.8 Eos % (Auto) 1.4 Baso % (Auto) 0.4 Absolute Neuts (auto) 5.9 Absolute Lymphs (auto) 1.81 Nucleated RBC % 0 Sodium 141 Potassium 3.3 L Chloride 107 Carbon Dioxide 26.0 Anion Gap 8 BUN 18 Creatinine 1.19 H Estim Creat Clear Calc 70.24 Est GFR (MDRD) Af Amer 64 Est GFR (MDRD) Non-Af 53 L BUN/Creatinine Ratio 15.1 Glucose 101 Calcium 6.9 L Total Bilirubin 0.50 AST 34 ALT 46 Alkaline Phosphatase 49 Total Protein 8.0 Albumin 3.7 Globulin 4.3 H Albumin/Globulin Ratio 0.9 TSH 44.70 H Free T4 0.65 L Free T3 pg/dL 1.0 L Urine Color Urine Clarity Urine pH Ur Specific [place] Urine Protein Urine Glucose (UA) Urine Ketones Urine Occult Blood Urine Nitrite Urine Bilirubin Urine Urobilinogen Ur Leukocyte Esterase Urine RBC Urine WBC Ur Squamous Epith Cells Urine Bacteria Urine Mucus Urine Test Urine Opiates Screen NEGATIVE Urine Methadone Screen NEGATIVE Ur Barbiturates Screen NEGATIVE Ur Phencyclidine Scrn NEGATIVE Ur Amphetamines Screen POSITIVE H MDMA (Ecstasy) Screen POSITIVE H U Benzodiazepines Scrn NEGATIVE Urine Cocaine Screen NEGATIVE U Cannabinoids Screen POSITIVE H Ur Drug Screen Comment 07/22/22 17:10 WBC RBC Hgb Hct MCV MCH MCHC RDW Std Deviation RDW Coeff of Bertin Plt Count MPV Immature Gran % (Auto) Neut % (Auto) Lymph % (Auto) [place] % (Auto) Eos % (Auto) Baso % (Auto) Absolute Neuts (auto) Absolute Lymphs (auto) Nucleated RBC % Sodium Potassium Chloride Carbon Dioxide Anion Gap BUN Creatinine Estim Creat Clear Calc Est GFR (MDRD) Af Amer Est GFR (MDRD) Non-Af BUN/Creatinine Ratio Glucose Calcium Total Bilirubin AST ALT Alkaline Phosphatase Total Protein Albumin Globulin Albumin/Globulin Ratio TSH Free T4 Free T3 pg/dL Urine Color Yellow Urine Clarity Cloudy Urine pH 5.0 Ur Specific [place] 1.025 Urine Protein 30 H Urine Glucose (UA) Normal Urine Ketones 50 H Urine Occult Blood 150 H Urine Nitrite Positive H Urine Bilirubin 1 H Urine Urobilinogen 1 H Ur Leukocyte Esterase 100 H Urine RBC 0 SEEN Urine WBC 5-10 SEEN Ur Squamous Epith Cells 0-5 SEEN Urine Bacteria 2+ Urine Mucus 0 SEEN Urine Test Negative Urine Opiates Screen Urine Methadone Screen Ur Barbiturates Screen Ur Phencyclidine Scrn Ur Amphetamines Screen MDMA (Ecstasy) Screen U Benzodiazepines Scrn Urine Cocaine Screen U Cannabinoids Screen Ur Drug Screen Comment Discharge Plan Triage Chief Complaint: Abn Labs ED Provider: [facility] Dx/Rx/DC Orders Instructions: ED Drug Abuse, ED Hyperkalemia, ED Hypothyroidism, ED Cystitis Female Adult, ED Hypocalcemia (Adult) Prescriptions: New cephalexin 500 mg capsule 500 mg PO Q12 Qty: 14 0RF No Action bupropion HCl 150 mg tablet extended release 24 hr 150 mg PO DAILY Qty: 90 1RF calcitriol 0.5 mcg capsule 0.5 mcg PO BID Qty: 180 1RF calcium carbonate 400 mg calcium (1,000 mg) tablet,chewable 800 mg PO .QID Qty: 240 5RF Rx Instructions: CHEW 2 TABLETS BY MOUTH FOUR TIMES A DAY WITH MEALS cholecalciferol (vitamin D3) [Vitamin D3] 50 mcg (2,000 unit) capsule 50 mcg PO DAILY Qty: 90 1RF ferrous sulfate 325 mg (65 mg iron) tablet 325 mg PO DAILY Qty: 90 1RF fluticasone propionate 50 mcg/actuation spray,suspension 1 spray INTRANASAL DAILY Qty: 16 1RF gabapentin 300 mg capsule 300 mg PO QHS Qty: 90 1RF gabapentin 100 mg capsule 100 mg PO BID Qty: 180 1RF levothyroxine 25 mcg tablet 25 mcg PO DAILY Qty: 90 1RF levothyroxine 200 mcg tablet 200 mcg PO DAILY Qty: 90 1RF meloxicam 15 mg tablet 15 mg PO ONCE PRN (Reason: Arthritis, Pain) Qty: 30 2RF omeprazole 40 mg capsule,delayed release(DR/EC) 40 mg PO DAILY Qty: 90 1RF potassium chloride 20 mEq tablet extended release 20 meq PO DAILY Qty: 90 1RF albuterol sulfate 90 mcg/actuation HFA aerosol inhaler 1 - 2 puff inhalation Q6H PRN (Reason: shortness of breath or wheezing) Qty: 6.7 0RF Primary Care Provider: Maykel Larose Referrals: Maykel Larose MD [Primary Care Provider] - Disposition Disposition: Home, Self Care
[2022-07-22 17:23] VITALS: BP 143/116; BP 147/99; BP 162/119; PULSE 75; PULSE 83; PULSE 95
[2022-07-22 17:25] LABS: Absolute Lymphocyte Count 1.81 X10^3/uL (0.83-4.51); Absolute Neutrophil Count 5.9 X10^3/uL (2.0-7.7); Basophil# 0.03 X10^3/uL; Basophil% 0.4 % (0-1); Eosinophil# 0.12 X10^3/uL; Eosinophils% 1.4 % (0-5); Hemoglobin 11.9 g/dL (12.0-15.0); Lymphocyte # 1.81 X10^3/ul (0.83-4.51); Lymphocyte % 21.8 % (19-41); Mean Corp Hgb Conc 31.3 g/dL (32-36); Mean Corpuscular Hgb 25.2 pg (27.0-32.0); Mean Corpuscular Volume 80.3 fL (81-99); Monocyte# 0.48 X10^3/uL; Monocyte% 5.8 % (0-10); NRBC Flagged by Analyzer 0 % (0-5); Neutrophil # 5.85 X10^3/uL (2.7-7.7); Neutrophil % 70.2 % (47-70); Platelet Count 298 K/mm3 (150-450); RBC Distribution Width CV 16.4 % (11.6-14.6); RBC Distribution Width SD 46.8 fl (35.1-43.9); Red Blood Count 4.73 M/mm3 (4.2-5.4); White Blood Count 8.3 K/mm3 (4.4-11.0)
[2022-07-22 17:41] LABS: Amphetamine Urine VISTA POSITIVE (<1000 ng/mL); Barbiturate Urine VISTA NEGATIVE (< 200 ng/mL); Benzodiazepine Urine VISTA NEGATIVE (< 200 ng/mL); Cocaine Urine VISTA NEGATIVE (< 300 ng/mL); Ecstacy Urine VISTA POSITIVE (< 500 ng/mL); Methadone Urine VISTA NEGATIVE (< 300 ng/mL); PCP Urine VISTA NEGATIVE (< 25 ng/mL); THC Urine VISTA POSITIVE (< 50 ng/mL); Vista UDS pH Range 4
[2022-07-22 17:51] LABS: ALB/GLOB Ratio 0.9 RATIO (0.9-2.4); AST(SGOT) 34 U/L (15-37); Alanine Aminotransfer ALT/SGPT 46 U/L (13-56); Albumin, Serum 3.7 g/dL (3.2-5.0); Alkaline Phosphatase 49 U/L (45-117); Anion Gap 8 (5-15); BUN 18 mg/dL (7-18); BUN/Creat Ratio 15.1 RATIO (10-20); Calcium,Total 6.9 mg/dL (8.5-10.1); Chloride 107 mmol/L (98-107); Creatinine, Serum 1.19 mg/dL (0.55-1.02); EST Glomerular Filtration Rate 53 mL/min (>60); Est Glom Filt Rate - Afr Amer 64 mL/min (>60); Estimated Creatinine Clearance 70.24 ml/min; Globulin 4.3 g/dL (2.2-4.2); Glucose 101 mg/dL (74-106); Potassium 3.3 mmol/L (3.5-5.1); Sodium Level 141 mmol/L (136-145); T4 Free Direct 0.65 ng/dL (0.76-1.46)
[2022-07-22 18:07] LABS: Mucous, Urine 0 SEEN /hpf (<or=2+); Red Blood Cells-Urine 0 SEEN /hpf (0-5)
[2022-07-22 18:08] LABS: Color, Urine Yellow (Yellow); Glucose, Dipstick Normal (Normal); Ketone-Dipstick 50 mg/dl (Negative); Leukocyte Esterase-Dipstick 100 /ul (Negative); Nitrite-Dipstick Positive (Negative); Occult Blood-Urine 150 /ul (Negative); Protein-Dipstick 30 mg/dl (Negative); Specific Gravity, Urine 1.025 (1.002-1.030); Urine Clarity Cloudy (Clear); Urine Urobilinogen 1 mg/dl (Normal)
[2022-07-22 18:09] LABS: Urine Bilirubin Dipstick 1 mg/dL (Negative)
[2022-07-22 18:10] LABS: Bacteria 2+ /hpf (None Seen); Internal QC Validated? YES +Cl - CLEAR BKGD; Pregnancy, Urine Negative Negative; Squamous Epithelial Cells - UA 0-5 SEEN /hpf (5-10); White Blood Cells 5-10 SEEN /hpf (0-5)
[2022-07-22 18:18] VITALS: BP 134/118; PULSE 74; RESP 16; O2SAT 98
[2022-07-22] MEDS: 0.9% Normal Saline 1,000 ML 999 ML IV (18:39)
[2022-07-22 18:56] VITALS: BP 153/107; PULSE 79; RESP 18; TEMP 36.7; O2SAT 97
[2022-07-22] MEDS: Cephalexin 250 MG Capsule 500 MG PO (19:02)
[2022-07-22] MEDS: Potassium Chloride Oral Tablet 20 MEQ 40 MEQ PO (19:11)
--- NOTE | 2022-07-22 19:13 | CM.ED ---
Social Work Note Referral Source: [facility] Negron Referral Reason: Resources SW met with MD Negron and was informed of recent symptoms and current concerns regarding sobriety and housing. SW to follow up. SW met with patient and introduced herself and role as [facility] Ict Customer Support Officer. Patient was in agreement to speak with SW. SW engaged patient in conversation about recent events and current concerns. Patient reviewed recent stressors including losing her housing due to being late on rent by a couple of days and trying to maintain her sobriety. Patient states she has a younger daughter that is currently staying at her friend's family's home and talks to her daily. Patient explained she has only been back in [place] for five days and is struggling with her environment as a lot of people are frequently in and out and abusing substances. SW was engaged in reflective listening and provided emotional support. SW inquired about patient's current connection to services. Patient explained she has been in contact daily with [facility] about their snf and has previously utilized [facility] as well as [facility]. Patient also discussed previous engagement in counseling services but isn't currently engaged in services. SW attempted to provided patient with [facility] list, counseling resources as well as Where and When to Go for nurse/transportation information through her insurance. Patient declined all resources and stated she was aware of all local resources as she is from this area. Patient voiced wanting assistance with getting transportation to a snf so she didn't have to return to the home she has been staying in. SW to follow up about bed availability at local shelters. SW contacted [facility] to inquire about bed availability and was informed the patient needed to contact them directly for a phone screen to determine if she is eligible for their snf. NATALI met with patient and provided her with the phone number for the snf at [facility], explaining they need her to call them directly. Patient stated she was going to be staying with her son's gf's family for the night and no longer needed assistance with transportation. Patient explained her ride wouldn't get here until around 8:30pm, patient states she will wait in the waiting area if needed. No other needs or concerns voiced at this time, SW remains available if needs arise. MD natasha HURST attempted to provide resources, emotional support provided. Plan: attempted to provided resources, patient to d/c home with a plan to stay with a son's gf's family member. Christina Andrea INSULATION ESTIMATOR, DAVE
[2022-07-22 20:09] VITALS: BP 141/88
== END 2022-07-22 20:35 | disposition home or self-care (01) ==
PROVIDERS: Emergency Provider Student in an Organized Health Care Education/Training Program; PCP Internal Medicine; Visit Provider Student in an Organized Health Care Education/Training Program
DX: N30.91 Cystitis, unspecified with hematuria (principal); F11.11 Opioid abuse, in remission; F15.10 Other stimulant abuse, uncomplicated; E86.0 Dehydration; E87.6 Hypokalemia; E83.51 Hypocalcemia; R30.0 Dysuria; R35.0 Frequency of micturition
CPT/HCPCS: 80053; 80307; 81001; 81025; 84439; 84443; 84481; 85025; 96360; 99283; J7030; A4216

== ENCOUNTER → 2022-08-21 | Outpatient (CLI) | payer MEDICAID, SELFPAY ==
[2022-08-23 20:07] LABS: Chlamydia By Nucleic Acid AMP Negative (Negative)
[2022-08-23 22:06] LABS: Gonococcus By Nucleic Acid AMP Negative (Negative)
[2022-08-29 15:39] LABS: HPV APTIMA, High Risk Negative (Negative)
== END | disposition home or self-care (01) ==
LOC: LABSPEC 15:11
PROVIDERS: PCP Internal Medicine; Visit Provider Registered Nurse
DX: N89.8 Other specified noninflammatory disorders of vagina (principal)
CPT/HCPCS: 87491; 87591; 87624; 88175; G0145

== ENCOUNTER 2022-10-15 17:11 | Emergency (ER) | payer MEDICAID, SELFPAY ==
[2022-10-15 17:12] VITALS: BP 160/107; PULSE 107; RESP 18; TEMP 36.6; O2SAT 100; BMI 34.0
--- NOTE | 2022-10-15 19:04 | EDS_ITS ---
HPI History of Present Illness Chief Complaint: Abscess Informant: patient Narrative Narrative: Patient states that she has a dental abscess and is starting to get a small abscess in her right axilla. She has had both of these before. She states all she needs is antibiotics. Clindamycin usually works. When she first came in here she felt just a little bit, weak and queasy but that passed and she feels fine now. No nausea or vomiting. She denies fevers or chills. She states her tooth has been hurting her off and on for a while. But the last few days its been more sore in the right upper anterior jaw. Today she feels like she is getting some swelling in that side of her face. The axilla has been just a bump for about 2 3 days. She states it is a little red. She poked it with a needle but nothing came out. [facility] Medical History Anemia Drug abuse Hepatitis C Low calcium levels Neuropathy Thyroid cancer Vitamin deficiency Home Medications albuterol sulfate 90 mcg/actuation aerosol inhaler 1 - 2 puff inhalation Q6H PRN shortness of breath or wheezing #6.7 grams 01/25/22 [Rx Last Taken Unknown] bupropion HCl 150 mg 24 hr tablet, extended release 150 mg PO DAILY #90 tabs 02/01/22 [Rx Last Taken Unknown] calcitriol 0.5 mcg capsule 0.5 mcg PO BID #180 caps 02/01/22 [Rx Last Taken Unknown] calcium carbonate 400 mg calcium (1,000 mg) chewable tablet 800 mg PO .QID #240 tabs 02/01/22 [Rx Last Taken Unknown] cholecalciferol (vitamin D3) 50 mcg (2,000 unit) capsule (Vitamin D3) 50 mcg PO DAILY #90 caps 02/01/22 [Rx Last Taken Unknown] ferrous sulfate 325 mg (65 mg iron) tablet 325 mg PO DAILY #90 tabs 02/01/22 [Rx Last Taken Unknown] fluticasone propionate 50 mcg/actuation nasal spray,suspension 1 spray intranasal DAILY ALLEGIES #16 grams 02/01/22 [Rx Last Taken Unknown] gabapentin 100 mg capsule 100 mg PO BID #180 caps 02/01/22 [Rx Last Taken Un known] gabapentin 300 mg capsule 300 mg PO QHS #90 caps 02/01/22 [Rx Last Taken Unknown] levothyroxine 200 mcg tablet 200 mcg PO DAILY THYROID #90 tabs 02/01/22 [Rx Last Taken Unknown] levothyroxine 25 mcg tablet 25 mcg PO DAILY #90 tabs 02/01/22 [Rx Last Taken Unknown] omeprazole 40 mg capsule,delayed release 40 mg PO DAILY GERD #90 caps 02/01/22 [Rx Last Taken Unknown] potassium chloride 20 mEq tablet,extended release 20 meq PO DAILY POTASSIUM #90 tabs 02/01/22 [Rx Last Taken Unknown] meloxicam 15 mg tablet 15 mg PO ONCE PRN Arthritis, Pain #30 tabs 09/17/22 [Rx Last Taken Unknown] clindamycin HCl 300 mg capsule (Cleocin HCl) 300 mg PO Q6H #40 CAPSULES 10/15/22 [Rx Last Taken Unknown] fluconazole 150 mg tablet (Diflucan) 150 mg PO DAILY #2 tabs 10/15/22 [Rx Last Taken Unknown] Allergy/AdvReac Type Severity Reaction Status Date / Time amoxicillin Allergy Intermediate Hives Verified 10/15/22 17:13 naproxen Allergy Swelling Verified 10/15/22 17:13 Family History Mother Alcoholism Anxiety Grandfather Heart disease Hypertension Surgical History History of History of thyroidectomy History of tubal ligation HISTORY PARTIAL PARATHYROIDECTOMY Social History Smoking Status: Current every day smoker tobacco type: cigarettes alcohol intake: never substance use type: methamphetamine and other details: Heroin what type of physical activity do you participate in: none seatbelt use: always do you feel safe at home: No (Staying with aunt, not the best home situation) ROS ROS ED Constitutional Constitutional ED: Denies fever(s) or sweats ENT ENT ED: Reports other Details: Dental pain as in history of present illness ; Denies rhinorrhea or sore throat Respiratory/Chest Respiratory/Chest: Denies cough Gastrointestinal Gastrointestinal: Denies nausea or vomiting Musculoskeletal Musculoskeletal: Denies myalgias or neck pain Integumentary Reports abscess and rash Neurologic Neurologic: Denies headache(s) Allergic/Immunologic Allergic/Immunologic ED: Denies urticaria EXAM Physical Exam Narrative Exam Narrative: Patient is awake alert no acute distress looks comfortable in bed. She has obvious dental infection in the right upper jaw in the central and lateral incisor area. She is got erosion of most of this tooth. There is redness and slight anterior swelling of the gum. No drainable abscess. She does appear to have some slight fullness of the face in that area. Swallowing is normal. Eyes show no pain with range of motion Neck is supple and there is no lymphadenopathy Lungs are clear bilaterally sats are normal. Heart is regular with a rate about 90 at this time. Abdomen soft nontender Extremities no swelling. In the right axilla she does have a slightly reddened swollen area locally that is about 1 x 1-1/2 cm. Its not fluctuant. There is really nothing yet to drain. Const Vital Signs: 10/15/22 17:12 Temperature 98 F Temperature Source Temporal Pulse Rate 107 H Respiratory Rate 18 Blood Pressure 160/107 H Blood Pressure Mean 124 Pulse Ox 100 Oxygen Delivery Method Room Air MDM MDM MDM Narrative Medical decision making narrative: Patient does appear to have dental abscess and infection. She has just the start of a small axillary abscess but nothing to drain. She does not want it drained anyway at this time. We will give her clindamycin that normally works well for her. Patient requested Diflucan as she commonly has yeast infections after antibiotics. Discharge Plan Triage Chief Complaint: Abscess ED Provider: Albert Meek Dx/Rx/DC Orders Clinical Impression: Abscess, dental, Abscess of axilla, right Instructions: Dental Abscess Prescriptions: New clindamycin HCl [Cleocin HCl] 300 mg capsule 300 mg PO Q6H Qty: 40 0RF fluconazole [Diflucan] 150 mg tablet 150 mg PO DAILY Qty: 2 0RF Rx Instructions: 1 tablet on day 7 and 1 tablet after antibiotics to No Action bupropion HCl 150 mg tablet extended release 24 hr 150 mg PO DAILY Qty: 90 1RF calcitriol 0.5 mcg capsule 0.5 mcg PO BID Qty: 180 1RF calcium carbonate 400 mg calcium (1,000 mg) tablet,chewable 800 mg PO .QID Qty: 240 5RF Rx Instructions: CHEW 2 TABLETS BY MOUTH FOUR TIMES A DAY WITH MEALS cholecalciferol (vitamin D3) [Vitamin D3] 50 mcg (2,000 unit) capsule 50 mcg PO DAILY Qty: 90 1RF ferrous sulfate 325 mg (65 mg iron) tablet 325 mg PO DAILY Qty: 90 1RF fluticasone propionate 50 mcg/actuation spray,suspension 1 spray INTRANASAL DAILY Qty: 16 1RF gabapentin 300 mg capsule 300 mg PO QHS Qty: 90 1RF gabapentin 100 mg capsule 100 mg PO BID Qty: 180 1RF levothyroxine 25 mcg tablet 25 mcg PO DAILY Qty: 90 1RF levothyroxine 200 mcg tablet 200 mcg PO DAILY Qty: 90 1RF omeprazole 40 mg capsule,delayed release(DR/EC) 40 mg PO DAILY Qty: 90 1RF potassium chloride 20 mEq tablet extended release 20 meq PO DAILY Qty: 90 1RF albuterol sulfate 90 mcg/actuation HFA aerosol inhaler 1 - 2 puff inhalation Q6H PRN (Reason: shortness of breath or wheezing) Qty: 6.7 0RF meloxicam 15 mg tablet 15 mg PO ONCE PRN (Reason: Arthritis, Pain) Qty: 30 2RF Primary Care Provider: Maykel Larose Referrals: Maykel Larose MD [Primary Care Provider] - 3-5 Days if not improving Disposition Disposition: Home, Self Care
[2022-10-15] MEDS: Clindamycin HCl 150 MG Capsule 300 MG PO (19:46)
== END 2022-10-15 19:48 | disposition home or self-care (01) ==
PROVIDERS: Emergency Provider Emergency Medicine; PCP Internal Medicine; Visit Provider Emergency Medicine
DX: L02.411 Cutaneous abscess of right axilla (principal); K04.7 Periapical abscess without sinus; F17.210 Nicotine dependence, cigarettes, uncomplicated
CPT/HCPCS: 99283

== ENCOUNTER → 2022-11-26 | Outpatient (CLI) | payer MEDICAID, SELFPAY ==
[2022-11-26 14:32] LABS: Mucous, Urine 0 SEEN /hpf (<or=2+)
[2022-11-26 16:58] LABS: Absolute Lymphocyte Count 1.62 X10^3/uL (0.83-4.51); Absolute Neutrophil Count 4.3 X10^3/uL (2.0-7.7); Basophil# 0.04 X10^3/uL; Basophil% 0.6 % (0-1); Color, Urine Yellow (Yellow); Eosinophil# 0.21 X10^3/uL; Eosinophils% 3.1 % (0-5); Glucose, Dipstick Normal (Normal); Hematocrit 38.7 % (37-47); Hemoglobin 11.5 g/dL (12.0-15.0); Ketone-Dipstick 5 mg/dl (Negative); Leukocyte Esterase-Dipstick 25 /ul (Negative); Lymphocyte # 1.62 X10^3/ul (0.83-4.51); Lymphocyte % 24.3 % (19-41); Mean Corp Hgb Conc 29.7 g/dL (32-36); Mean Corpuscular Hgb 24.1 pg (27.0-32.0); Mean Corpuscular Volume 81.1 fL (81-99); Mean Platelet Vol. 11.2 fl (6.2-12.0); Monocyte# 0.43 X10^3/uL; Monocyte% 6.4 % (0-10); NRBC Flagged by Analyzer 0 % (0-5); Neutrophil # 4.34 X10^3/uL (2.7-7.7); Neutrophil % 65.2 % (47-70); Nitrite-Dipstick Positive (Negative); Occult Blood-Urine 10 /ul (Negative); Platelet Count 266 K/mm3 (150-450); Protein-Dipstick 30 mg/dl (Negative); RBC Distribution Width CV 16.1 % (11.6-14.6); RBC Distribution Width SD 47.3 fl (35.1-43.9); Red Blood Count 4.77 M/mm3 (4.2-5.4); Specific Gravity, Urine 1.025 (1.002-1.030); Urine Bilirubin Dipstick Negative (Negative); Urine Clarity Cloudy (Clear); Urine Urobilinogen Normal (Normal); White Blood Count 6.7 K/mm3 (4.4-11.0)
[2022-11-26 17:11] LABS: Red Blood Cells-Urine 0-5 SEEN /hpf (0-5); White Blood Cells 0-5 SEEN /hpf (0-5)
[2022-11-26 17:13] LABS: Bacteria 3+ /hpf (None Seen); Squamous Epithelial Cells - UA 0-5 SEEN /hpf (5-10)
[2022-11-26 17:14] LABS: Amorphous Sediment 1+ URATE
[2022-11-26 17:19] LABS: ALB/GLOB Ratio 0.8 RATIO (0.9-2.4); AST(SGOT) 26 U/L (15-37); Alanine Aminotransfer ALT/SGPT 45 U/L (13-56); Albumin, Serum 3.3 g/dL (3.2-5.0); Alkaline Phosphatase 55 U/L (45-117); Anion Gap 6 (5-15); BUN 16 mg/dL (7-18); BUN/Creat Ratio 15.7 RATIO (10-20); Calcium,Total 7.7 mg/dL (8.5-10.1); Chloride 103 mmol/L (98-107); Cholesterol 152 mg/dL (200); Creatinine, Serum 1.02 mg/dL (0.55-1.02); EST Glomerular Filtration Rate 64 mL/min (>60); Est Glom Filt Rate - Afr Amer 77 mL/min (>60); Globulin 4.1 g/dL (2.2-4.2); Glucose 96 mg/dL (74-106); High Density Lipoprotein 78 mg/dL; Potassium 3.7 mmol/L (3.5-5.1); Protein, Total 7.4 g/dL (6.4-8.2); Sodium Level 138 mmol/L (136-145); Triglycerides 71 mg/dL; Very Low Density Lipoprotein 14 mg/dL (5-40)
[2022-11-26 17:52] LABS: HIV - WCH Non-Reactive (Nonreactive); Hepatitis B Surface Antigen Non-Reactive (Nonreactive); Hepatitis C Antibody Preliminary Reactive (Nonreactive); Syphilis Antibodies Non-reactive; Vitamin B12 242 pg/mL (211-911); Vitamin D,25 Hydroxy 37.1 ng/mL
[2022-11-26 19:33] LABS: Chlamydia Trachomatis by PCR Negative (Negative); Neisserai gonorrhoeae by PCR Negative (Negative); Probe Check PASS; Sample Adequacy Control PASS; Specimen Processing Control PASS
== END | disposition home or self-care (01) ==
LOC: BIMLAB 14:30
PROVIDERS: PCP Internal Medicine; Referring Provider Nurse Practitioner Family; Visit Provider Nurse Practitioner Family
DX: E03.9 Hypothyroidism, unspecified (principal); E20.9 Hypoparathyroidism, unspecified; E58 Dietary calcium deficiency; E56.9 Vitamin deficiency, unspecified; Z72.51 High risk heterosexual behavior
CPT/HCPCS: 36415; 80053; 80061; 81001; 82306; 82607; 84443; 85025; 86703; 86780; 86803; 87086; 87088; 87186; 87340; 87491; 87591